=== PATIENT | male | born 1975 | race Caucasian/White ===

== ENCOUNTER → 2020-06-09 08:44 | Outpatient (CLI) | payer MEDICAID, SELFPAY ==
--- NOTE | 2020-06-09 08:47 | FL_ITS ---
PROCEDURE: FL UPPER GI SMALL BOWEL CLINICAL INDICATION: GASTROESOPHAGEAL REFLUX DISEASE Abdominal pain, heartburn COMPARISON: No exams were available for comparison TECHNIQUE: FLUOROSCOPY TIME : 2 minutes and 3 seconds FINDINGS: Esophagus has an unremarkable appearance. No hiatal hernia parent. In the duodenal bulb there was a area of questionable edema with radiating folds and small central area collection of contrast suggesting an ulcer of the duodenal bulb. There is also some thickening of the mucosa of the descending duodenum. The small bowel has an unremarkable appearance. No obstructing lesions or mucosal abnormalities are evident. Spot views of the small bowel and terminal ileum are unremarkable. IMPRESSION: 1. Possible small duodenal bulb ulcer with duodenitis 2. Unremarkable small bowel series Dictated by: Sam Woods MD 06/09/2020 17:03 Sam Woods MD in [place] 06/09/2020 17:03
== END ==
PROVIDERS: PCP Family Medicine; Visit Provider Physician Assistant
DX: K21.9 Gastro-esophageal reflux disease without esophagitis (principal)
CPT/HCPCS: 74246; 74248

== ENCOUNTER → 2020-06-10 15:48 | Outpatient (CLI) | payer MEDICAID, SELFPAY ==
--- NOTE | 2020-06-10 15:52 | XR_ITS ---
PROCEDURE: XR CERVICAL SPINE 5V CLINICAL INDICATION: Neck pain COMPARISON: No exams were available for comparison FINDINGS: No fracture or dislocation. No lytic or blastic change. There is normal mineralization. Prior anterior cervical disc fusion at C5-C6. There is good alignment in the bone plate and screws appear intact. There is some mild foraminal narrowing on the right at C6-C7 and on the left at C6-C7. No cervical rib. No lytic or blastic change. There is reversal of the cervical lordosis which may be due to patient position or muscle spasm. There is some faint calcification in the nuchal ligament at the C5 level. Other findings:None. IMPRESSION: Postsurgical changes. Mild bilateral foraminal narrowing at C6-C7. Reversal of cervical lordosis Dictated by: Sam Woods MD 06/10/2020 16:47 Sam Woods MD in [place] 06/10/2020 16:47
== END ==
PROVIDERS: PCP Physician Assistant; Visit Provider Physician Assistant
DX: K26.9 Duodenal ulcer, unspecified as acute or chronic, without hemorrhage or perforation (principal)
CPT/HCPCS: 72050

== ENCOUNTER → 2020-06-28 16:10 | Outpatient (CLI) | payer MEDICAID, SELFPAY ==
[2020-06-28 17:40] LABS: Coronavirus 19 IgG Antibody Negative (Negative); Coronavirus 19 IgM Antibody Negative (Negative)
== END ==
PROVIDERS: Visit Provider Surgery
DX: Z01.818 Encounter for other preprocedural examination (principal); Z13.810 Encounter for screening for upper gastrointestinal disorder
CPT/HCPCS: 36415; 86328

== ENCOUNTER 2020-06-30 08:25 | Day surgery (SDC) | payer MEDICAID, SELFPAY ==
[2020-06-29 10:02] VITALS: BMI 23.6
[2020-06-30 08:51] VITALS: BP 133/76; PULSE 69; RESP 18; TEMP 36.1; O2SAT 100
--- NOTE | 2020-06-30 09:47 | HMH.ANESCL ---
[facility] Anesthesia Checklist - Patient Identification Patient Identification: Arm Band - Structural Data Admitted From: Home Planned Operative Procedure/s: egd Consent for Planned Operative Procedure(s) Verified: Yes Verified Documents: Surgical Consent, History and Physical - NPO Status Verified Time NPO: 00:00 - Additional verifications Anesthesia Reactions: No - Airway Assessment C-Spine Mobility Assessed: Yes (mp2) TMJ Mobility Assessed: Yes Dentition: Poor Dentition - Neurological Assessment Level of Consciousness: Awake, Alert - Anesthesia Plan Anesthesia Risk discussed: Yes Anesthesia Plan: Verified ASA Class: II Anesthesia Type: MAC [facility] History I have reviewed the patient's past medical history: Yes Medical History: Reports:: Anxiety, Depression Denies:: Cancer, Diabetes Mellitus Type 1, Diabetes Mellitus Type 2, Hypertension, Internal Pacemaker, MRSA, Seizures *Have you ever received a pneumonia vaccine?: No *Have you received a flu vaccine this season?: Yes (2019) Anesthesia experience/problems:: nac Laterality Cases: Bilateral: Other Other Surgeries: Yes: Other (acdf). No: Pacemaker Amputation: No Fractures: No - *Social History Last grade of school completed: GED Smoking Status: Current every day smoker Tobacco Type: cigarettes # Packs/Day (cigarettes): 1 Alcohol Intake: current Alcohol Intake Frequency:: a few times a month Substance Use Type: marijuana *Occupational Status:: employed Housing: house Household Members: spouse *Travel in the last 8 weeks: None - Psychiatric History Pschychiatric History:: Reports:: Anxiety, Depression Family Hx:: No significant family history
[2020-06-30 12:27] VITALS: O2SAT 97
--- NOTE | 2020-06-30 12:37 | HMH.SCOPE ---
- Procedure: Date: 06/30/20 Patient Date of :: 1975 Procedure Performed:: Esophagogastroduodenoscopy with biopsy Indications:: Reflux Nausea and vomiting Duodenal ulcer (per barium swallow) Performing Provider:: Tyshawn Gao MD Referring Provider:: . Sedation:: Monitored anesthesia care Procedure:: After informed consent was obtained the patient was taken to the endoscopy suite. Sedation ensued after the patient was transferred to the left lateral decubitus position. Pulse, blood pressure, and oxygen saturation were monitored throughout the procedure. The endoscope was advanced beyond the duodenal bulb. Retroflexion within the gastric lumen was accomplished. The gastroscope was carefully removed and the patient was transferred to recovery in stable condition. Please see findings and specimens below for detail. Findings:: Gastroesophageal junction at 40 cm Sliding hiatal hernia Mild to moderate gastritis globally Focal duodenitis (possible site of healed ulcer) Specimens:: Antral biopsy Recommendations:: Follow-up pathology Continue proton pump inhibition Complications:: No immediate Estimated blood obtained (mL): 1
[2020-06-30 12:40] VITALS: BP 112/72; PULSE 68; RESP 18; TEMP 36.7; O2SAT 99
[2020-06-30 12:50] VITALS: BP 110/91; PULSE 67; RESP 18; O2SAT 100
[2020-06-30 13:00] VITALS: BP 132/82; PULSE 61; RESP 18; O2SAT 100
[2020-06-30 13:10] VITALS: BP 119/82; PULSE 50; RESP 18; O2SAT 100
== END 2020-06-30 13:10 | disposition home or self-care (01) ==
LOC: OUTP 08:25
PROVIDERS: PCP Physician Assistant; Visit Provider Surgery
PROC: 0DJ08ZZ Inspection of Upper Intestinal Tract, Via Natural or Artificial Opening Endoscopic (ICD-10-PCS; CPT 43235; principal; 2020-06-30 09:30)
DX: K44.9 Diaphragmatic hernia without obstruction or gangrene; K29.60 Other gastritis without bleeding; K29.80 Duodenitis without bleeding; F41.9 Anxiety disorder, unspecified; F32.9 Major depressive disorder, single episode, unspecified; Z87.39 Personal history of other diseases of the musculoskeletal system and connective tissue; Z72.0 Tobacco use; F12.90 Cannabis use, unspecified, uncomplicated
CPT/HCPCS: 43239

== ENCOUNTER → 2020-07-11 07:45 | Outpatient (CLI) | payer MEDICAID, SELFPAY ==
--- NOTE | 2020-07-11 07:48 | MR_ITS ---
PROCEDURE: MR CERVICAL SPINE WO CON CLINICAL INDICATION: NECK PAIN MIGRAINE HEADACHE. INTERMITTENT BILATERAL ARM PAIN, NUMBNESS, AND TINGLING. [id number]. NO INJURY. X-RAY 06-10-20.PRIOR MRI 08-21-13 COMPARISON: MR HANDLING TECH/O MRI-C-SPINE W/O from 08/21/2013 TECHNIQUE: Standard multiplanar multiecho sequences are performed without contrast. 3-D MIP and myelographic images are also rendered and reviewed FINDINGS: There is normal alignment. The craniocervical junction has an unremarkable appearance. C2-C3: Mild prominence of the posterior longitudinal ligament C3-C4: Minimal prominence of the posterior longitudinal ligament with bulging disc with narrowing of the canal at 10 mm without cord impingement. C4-C5: Bulging disc with broad-based central and right paracentral disc protrusion with canal stenosis of 8 mm and minimal impingement upon the anterior right aspect of the cord with right lateral recess and foraminal narrowing. This appears slightly more prominent than when compared to the previous exam. C5-C6: Status post anterior cervical disc fusion. Artifact is present on the axial images. No obvious canal stenosis or foraminal narrowing. C6-C7: Minimal bulging disc with minimal central disc protrusion versus prominent posterior longitudinal ligament without cord impingement. C7-T1: Unremarkable. IMPRESSION: 1. C2-C3: Mild prominence of the posterior longitudinal ligament 2. C3-C4: Minimal prominence of the posterior longitudinal ligament with bulging disc with narrowing of the canal at 10 mm without cord impingement. 3. C4-C5: Bulging disc with broad-based central and right paracentral disc protrusion with canal stenosis of 8 mm and minimal impingement upon the anterior right aspect of the cord with right lateral recess and foraminal narrowing. This appears slightly more prominent than when compared to the previous exam. 4. C5-C6: Status post anterior cervical disc fusion. Artifact is present on the axial images. No obvious canal stenosis or foraminal narrowing. 5. C6-C7: Minimal bulging disc with minimal central disc protrusion versus prominent posterior longitudinal ligament without cord impingement. 6. No extruded herniated disc evident Dictated by: Sam Woods MD 07/12/2020 11:13 Sam Woods MD in [place] 07/12/2020 11:13
== END ==
PROVIDERS: PCP Physician Assistant; Visit Provider Physician Assistant
DX: M54.2 Cervicalgia (principal); Z87.39 Personal history of other diseases of the musculoskeletal system and connective tissue
CPT/HCPCS: 72141; 76376

== ENCOUNTER 2021-11-08 16:27 | Emergency (ER) | payer BC, SELFPAY ==
[2021-11-08 18:34] VITALS: BP 128/82; PULSE 90; RESP 18; TEMP 37.5; O2SAT 99; BMI 22.8
[2021-11-08 18:50] LABS: UTC Influenza A Antigen Negative (Negative); UTC Influenza B Antigen Negative (Negative)
[2021-11-08 18:59] LABS: Strep Scrn Group A (Rapid) Negative (Negative)
--- NOTE | 2021-11-08 19:28 | HMH.EDUTC ---
[facility] [place] Disposition Clinical Impression: Viral syndrome, Exposure to COVID-19 virus Disposition: Home, Self-Care Condition on Discharge: Good Instructions: Preventing the Spread of Coronavirus Discharge Instructions, DI for COVID-19 (Suspected or Confirmed ), DI for Viral Syndrome Additional Instructions: Drink plenty of fluids. Take tylenol or ibuprofen for pain or fever. Take the medications as directed. Follow up with your regular doctor. GO TO THE ER FOR ANY WORSENING SYMPTOMS Quarantine until you know the results of your covid-19 test. Notify your school or workplace of your results and follow their instructions regarding return to work/school. The cough medication (promethazine dm) will make you drowsy, so don't drive or operate heavy machinery after taking it. Prescriptions: Albuterol Sulfate [Albuterol Sulfate Hfa] 2 puffs IH Q6HP PRN 30 Days #1 each PRN Reason: Shortness Of Breath [facility] Ibuprofen [Ibuprofen 600mg Tablet] 600 mg PO Q6HP PRN #30 tab PRN Reason: Mild Pain Transmission Status: Pending to [facility] Promethazine/Dextromethorphan [Promethazine-Dm Syrup] 5 ml PO Q6HP PRN #240 ml PRN Reason: Cough Transmission Status: P[facility] to [facility] Referrals: Bhargav Soni MD [Primary Care Provider] - Forms: Work/School Release Time of Disposition: 19:32 Medical Decision Making - Medical Records Medical records reviewed: No: I reviewed the patient's medical records. - Angelito Inquiry Pt receiving controlled substance: No Vital Signs: 11/08/21 18:34 Temperature 99.5 F Temperature Source Temporal Artery Scan Pulse Rate [Left] 90 Respiratory Rate 18 Blood Pressure [Right Arm] 128/82 Blood Pressure Mean [Right Arm] 97 02 Sat by Pulse Oximetry 99 - Lab Data Lab Results 11/08/21 18:29: Group A Strep Rapid Negative 11/08/21 18:34: Influenza Type A Ag Negative, Influenza Type B Ag Negative Orders (Tests/Meds): ORDERS Category Date Time Status Covid-19 Nasal PCR ([facility]) Routine Lab 11/08/21 18:29 Received Strep Screen Confirmation Stat Micro 11/08/21 18:29 Received [facility] [place] HPI - General Stated complaint: EXPOSED,FEVER,CHILLS,lopez,bODY PAIN lopez Time Seen by Provider: 11/08/21 19:28 Mode of Arrival: Ambulatory Source of Information: Patient Limitations: No Limitations Description of Symptoms (Recalled from Triage Doc. by RN): pt c/o a fever, nausea, body aches, chills and sweating. HEENT Symptoms (Recalled from RN notes): No Resp Symptoms (Recalled from RN notes): No Skin Symptoms (Recalled from RN notes): No MS Symptoms (Recalled from RN notes): No Functional Status (Recalled from RN notes): wnl - History of Present Illness Provider Complaint: He states that for the past 1 day he has had chilling, body aches, a dry cough, scratchy sore throat, and he has felt very bad. He has not been vaccinated against covid-19. He has not had an influenza vaccination. - Related Data Home Medications Medication Instructions Recorded Confirmed gabapentin 300 mg capsule 300 mg PO DAILY 06/22/20 07/06/20 Previous Rx's Medication Instructions Recorded Albuterol Sulfate [Albuterol 2 puffs IH Q6HP PRN 30 Days #1 each 11/08/21 Sulfate Hfa] Ibuprofen [Ibuprofen 600mg 600 mg PO Q6HP PRN #30 tab 11/08/21 Tablet] Promethazine/Dextromethorphan 5 ml PO Q6HP PRN #240 ml 11/08/21 [Promethazine-Dm Syrup] Allergies Allergy/AdvReac Type Severity Reaction Status Date / Time No Known Allergies Allergy Verified 06/30/20 08:50 - Worker's Comp Is this a Worker's Comp case?: No [facility] History - Hepatitis A Screen Drug use history?: No High risk sexual behaviors?: No History of sexually transmitted infection?: No Currently employed?: No Childcare worker?: No Do you have indoor plumbing?: Yes Do you have electricity?: Yes Attestation statement:: This patient has been sc
[2021-11-08 19:36] VITALS: BP 128/82; PULSE 90; RESP 18; TEMP 37.5
== END 2021-11-08 19:37 | disposition home or self-care (01) ==
PROVIDERS: Emergency Provider Nurse Practitioner Family; PCP Family Medicine
DX: U07.1 COVID-19 (principal); F17.210 Nicotine dependence, cigarettes, uncomplicated
CPT/HCPCS: 87430; 87804; 99203; C9803; G0463; U0003; U0005

== ENCOUNTER 2022-08-09 19:26 | Emergency (ER) | payer BC, SELFPAY ==
--- NOTE | 2022-08-09 19:20 | ECG_ITS ---
APPROVED REPORT Exam: Resting ECG HR:79 bpm ECG Measurements Heart Rate 79 AXES RI 167 P 56 QRSd 90 QRS 74 QT 343 T 29 QTc 377 Conclusion SINUS RHYTHM NONSPECIFIC T-WAVE ABNORMALITY BORDERLINE ECG UNCONFIRMED REPORT Electronically signed by : Herb Disla MD 08/10/2022 12:34:08
[2022-08-09 19:26] VITALS: BP 162/103; PULSE 78; RESP 16; TEMP 36.7; O2SAT 100; BMI 21.5
[2022-08-09 19:34] VITALS: BMI 22.9
--- NOTE | 2022-08-09 19:35 | XR_ITS ---
PROCEDURE INFORMATION: Exam: XR Chest Exam date and time: 08/09/2022 7:37 PM Age: 47 years old Clinical indication: Sternal or substernal pain; Additional info: Chest pain, halfway smoker TECHNIQUE: Imaging protocol: Radiologic exam of the chest. Views: 2 views. COMPARISON: No relevant prior studies available. FINDINGS: Lungs: Normal pulmonary expansion. Pulmonary vasculature grossly normal. No gross pulmonary infiltrates or edema pattern. Pleural spaces: No pleural effusion. No pneumothorax. Heart/Mediastinum: Heart size normal. No tracheal/mediastinal shift. Bones/joints: Cervical fusion hardware noted without gross hardware complication. No acute osseous abnormalities are identified. IMPRESSION: No acute thoracic process.
[2022-08-09 20:18] LABS: Basophils # 0.1 K/mm3 (0-0.2); Basophils % 0.9 % (0.1-2.0); Eosinophils # 0.1 K/mm3 (0.0-0.4); Eosinophils % 0.5 % (0.1-12.0); Hematocrit 52.8 % (42.0-52.0); Hemoglobin 17.1 g/dL (14.1-18.0); Lymphocytes # 2.4 K/mm3 (0.7-4.5); Mean Corpuscular HGB Conc 32.3 g/dL (31.8-35.4); Mean Corpuscular Hemoglobin 31.4 pg (27.0-31.2); Mean Corpuscular Volume 97.1 fl (80-94); Mean Platelet Volume 8.7 fl (7.4-10.4); Monocytes # 0.9 K/mm3 (0.1-1.0); Monocytes % 7.4 % (1.7-9.3); Neutrophils # 8.5 K/mm3 (1.8-7.8); Neutrophils % 71.3 % (37.0-80.0); Platelet Count 325 K/mm3 (142-424); Red Blood Count 5.44 M/mm3 (4.60-6.20); Red Cell Distribution Width 13.3 % (11.5-17.5)
[2022-08-09 20:42] LABS: Chloride 99 mmol/L (98-107); Potassium 4.1 mmoL/L (3.5-5.1); Sodium 138 mmol/L (136-145)
[2022-08-09 20:45] LABS: Anion Gap 13.1 mEq/L (5-15); Blood Urea Nitrogen 11 mg/dl (9-20); Carbon Dioxide 30 mmol/L (22.0-30.0); Creatinine Clearance Estimated 106 mL/min (50-200); Estimated Glomerular Filt Rate 91 ml/min (>60); GFR (African American) 110 ML/MIN (>60); Glucose 105 mg/dl (74-100)
--- NOTE | 2022-08-09 20:55 | HMH.EDCP ---
Discharge Plan Disposition Patient Disposition: Home, Self-Care Condition: Good Prescriptions Prescriptions: No Action gabapentin 300 mg capsule 300 mg PO DAILY promethazine-DM 120 ML syrup 5 ml PO Q6HP PRN (Reason: Cough) Qty: 240 0RF albuterol sulfate 8.5 GM HFA aerosol inhaler 2 puffs IH Q6HP PRN (Reason: Shortness Of Breath) 30 Days Qty: 1 5RF ibuprofen 600 MG tablet 600 mg PO Q6HP PRN (Reason: Mild Pain) Qty: 30 0RF Referrals Follow up/Referrals: Bhargav Soni MD [Primary Care Provider] - See instructions Fabiano Rivas MD [Staff Physician] - See instructions (F/U for ER chest pain visit) Activity Restrictions/Add. Instructions Additional Instructions/Restrictions: Follow-up with cardiology and your primary care. Return to the ER for any new or worsening symptoms including return of chest pain. Clinical Impressions Clinical Impression: Chest pain Instructions Patient Instructions: DI for Atypical Chest Pain, DI for Chest Pain Discharge ED Provider: Newton Giang Chest Pain HPI General Chief Complaint: Chest Pain Stated Complaint: chest pain Time Seen by Provider: 08/09/22 20:00 Mode of Arrival: Ambulatory Limitations: No Limitations Description of Symptoms (Recalled from ER Triage Doc. by RN): pt stated he was at work when he started having an intense sharp pain in the lower part of his chest the pain is now a 2/10 and the pt stated he has a hx of anxiety but has never had this befor this felt different History of Present Illness HPI narrative: 47-year-old male presents with sharp stabbing pain in the lower left part of his chest currently now pain-free was 2 out of 10 in triage. 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 This started approximately 1 hour ago. Brought in by EMS. Patient states that he has had chest pain with severe anxiety attacks before but this felt different than his panic attacks. He denies shortness of breath or radiation of pain associated nausea. He did have some of his constitutional symptoms such as arm tingling that he has had with panic attacks in the past. He felt slightly dizzy with standing denies palpitations. No history of embolism. RENÉ Score for Non-Stemi Age of Patient: 40-49 years old Heart Rate: 110-149 bpm Systolic Blood Pressure: 80-99 mmHg Serum Creatinine: 0.80-1.19 mg/dl CHF [place] Class: I-No CHF Other Risk Factors: None Non-Stemi Risk Score: 109 Risk Stratification: 109-140 = Intermediate Ri Related Data Home Medications Medication Instructions Recorded Confirmed gabapentin 300 mg capsule 300 mg PO DAILY Pain 06/22/20 07/06/20 Previous Rx's Medication Instructions Recorded albuterol sulfate 90 mcg/actuation 2 puffs IH Q6HP PRN Shortness Of 11/08/21 aerosol inhaler Breath 30 days #1 ea ibuprofen 600 mg tablet 600 mg PO Q6HP PRN Mild Pain #30 11/08/21 tabs promethazine-DM 6.25 mg-15 mg/5 mL 5 ml PO Q6HP PRN Cough #240 mL 11/08/21 oral syrup Allergies Allergy/AdvReac Type Severity Reaction Status Date / Time No Known Allergies Allergy Verified 06/30/20 08:50 PFSH PFSH Social History Smoking Status: Current every day smoker tobacco type: cigarettes packs per day: 1 alcohol intake: current substance use type: marijuana current occupational status: employed Travel in the last 8 weeks: None household members: spouse housing: house current occupation: [employer] current occupational exposures/hazards: No caffeine: Yes ROS Obtained: Yes Systems reviewed as appropriate & no additional complaints except as documented Physical Exam General General appearance: alert and in no apparent distress Head Head exam: atraumatic and normocephalic Eye Eye exam: Present normal appearance and PERRL ENT ENT exam: Present mucous membranes moist
[2022-08-09 21:06] LABS: Troponin I < 0.01 ng/ml (0.00-0.034)
[2022-08-09 21:30] VITALS: BP 120/78; PULSE 50; O2SAT 96
[2022-08-09 22:00] VITALS: BP 118/74; PULSE 48; O2SAT 97
[2022-08-09 22:30] VITALS: BP 121/84; PULSE 75; O2SAT 98
[2022-08-09 23:30] LABS: Troponin I < 0.01 ng/ml (0.00-0.034)
[2022-08-09 23:59] VITALS: BP 120/83; PULSE 54; RESP 14; TEMP 36.6; O2SAT 99
== END 2022-08-10 00:15 | disposition home or self-care (01) ==
PROVIDERS: Emergency Medicine; Emergency Provider Student in an Organized Health Care Education/Training Program; PCP Family Medicine
DX: R07.9 Chest pain, unspecified (principal)
CPT/HCPCS: 71046; 80048; 84484; 85025; 93005; 99284

== ENCOUNTER 2023-11-29 13:47 | Emergency (ER) | payer BC, SELFPAY ==
[2023-11-29 13:49] VITALS: BP 131/91; PULSE 62; RESP 22; TEMP 37.1; O2SAT 99; BMI 21.4
[2023-11-29 14:31] VITALS: BP 145/91; PULSE 66; RESP 20; O2SAT 99
[2023-11-29 15:00] VITALS: BP 150/63; PULSE 65; O2SAT 97
--- NOTE | 2023-11-29 15:03 | PC.NURSE ---
Dr. Iqbal at [facility] for pt eval
--- NOTE | 2023-11-29 15:13 | CT_ITS ---
FINAL REPORT TECHNIQUE: Axial imaging of the chest was obtained without contrast. Reformatted images were also obtained and reviewed.This study was performed with techniques to keep radiation doses as low as reasonably achievable, (ALARA). Individualized dose reduction technique using automated exposure control or adjustment of mA and/or kV according to the patient's size were employed. CLINICAL HISTORY: fall, R rib pain, pleurisy FINDINGS: There are mild coronary artery calcifications. There is no axillary adenopathy. There is no hilar or mediastinal mass or adenopathy. Heart size is normal. There is no pericardial or pleural effusion. Limited images of the upper abdomen are unremarkable. There is a calcified granuloma in the right upper lobe. No fracture is identified. There is no pneumothorax. No suspicious infiltrate or nodule is identified on lung window images. IMPRESSION: No acute process. Reviewed, Interpreted and Dictated by Lorenzo Agustin III, MD Transcribed by Deidre Burgos Authenticated and [facility]
[2023-11-29] MEDS: LIDOCAINE 5% TRANSDERMAL PATCH 1 EACH TP (15:21)
[2023-11-29] MEDS: ACETAMINOPHEN 500MG TAB 1000 MG PO (15:21)
[2023-11-29] MEDS: METHOCARBAMOL 500MG TABLET 750 MG PO (15:21)
[2023-11-29] MEDS: IBUPROFEN 600 MG TABLET PO (15:21)
--- NOTE | 2023-11-29 15:29 | PC.NURSE ---
Pt gone to RAD via wheelchair
--- NOTE | 2023-11-29 15:50 | ED_ITS ---
Discharge Plan Disposition Patient Disposition: Home, Self-Care Prescriptions Prescriptions: New methocarbamol 750 mg tablet 1,500 mg PO TID 5 Days Qty: 30 0RF No Action gabapentin 300 mg capsule 300 mg PO DAILY promethazine-DM 120 ML syrup 5 ml PO Q6HP PRN (Reason: Cough) Qty: 240 0RF albuterol sulfate 8.5 GM HFA aerosol inhaler 2 puffs IH Q6HP PRN (Reason: Shortness Of Breath) 30 Days Qty: 1 5RF ibuprofen 600 MG tablet 600 mg PO Q6HP PRN (Reason: Mild Pain) Qty: 30 0RF Referrals Follow up/Referrals: Bhargav Soni MD [Primary Care Provider] - See instructions Activity Restrictions/Add. Instructions Additional Instructions/Restrictions: Call your family doctor to establish care for this visit to the emergency department and schedule follow-up within 48 hours to ensure improvement. If you have any worsening of your condition or any other concerning signs or symptoms, return to the emergency department or your primary care doctor for further evaluation. Clinical Impressions Clinical Impression: Rib pain on right side, Fall Discharge ED Provider: Angel Iqbal General Adult HPI General Chief complaint: Fall Stated complaint: Pain in right ribs Time Seen by Provider: 11/29/23 14:58 Mode of Arrival: Ambulatory Source of Information: Patient Limitations: No Limitations Description of Symptoms (Recalled from ER Triage Doc. by RN): patient ambulatory to ED with c/o right side rib pain. patient with ground level fall to right side. 10/10 pain with inspiration and cough. 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 History of Present Illness HPI narrative: 48-year-old male history of anxiety not currently taking any medications presenting with right rib pain. Patient states that 2 days prior to this visit, he tripped, hit the right side of his ribs on the sink. His head pain since that time. No difficulty breathing, nausea, vomiting, hemoptysis, fevers or chills. He states that he has been coughing and has been nonproductive precipitating pain. It is right-sided/posterior, severe in intensity, does not radiate. Related Data Home Medications Medication Instructions Recorded Confirmed gabapentin 300 mg capsule 300 mg PO DAILY Pain 06/22/20 07/06/20 Previous Rx's Medication Instructions Recorded albuterol sulfate 90 mcg/actuation 2 puffs IH Q6HP PRN Shortness Of 11/08/21 aerosol inhaler Breath 30 days #1 ea ibuprofen 600 mg tablet 600 mg PO Q6HP PRN Mild Pain #30 11/08/21 tabs promethazine-DM 6.25 mg-15 mg/5 mL 5 ml PO Q6HP PRN Cough #240 mL 11/08/21 oral syrup methocarbamol 750 mg tablet 1,500 mg PO TID 5 days #30 tabs 11/29/23 Allergies Allergy/AdvReac Type Severity Reaction Status Date / Time No Known Allergies Allergy Verified 06/30/20 08:50 [facility] Disclaimer: The information contained in this section may have been updated after the patient was seen, as this information can be updated by other users. Social History Smoking Status: Current every day smoker tobacco type: cigarettes packs per day: 1 alcohol intake: current substance use type: marijuana current occupational status: employed Travel in the last 8 weeks: None household members: spouse housing: house current occupation: [employer] current occupational exposures/hazards: No caffeine: Yes ROS Obtained: Yes All systems reviewed & no additional complaints except as documented Physical Exam General General appearance: alert and in no apparent distress Head Head exam: atraumatic and normocephalic Eye Eye exam: Present normal appearance, PERRL and EOMI ENT ENT exam: Present mucous membranes moist Neck Neck exam: Present normal inspection, full ROM, trachea midline and tenderness (R posterolateral) Respiratory Respiratory exam: Absent respiratory distress, wheezes, stridor, accessory muscle use or prolonged expiratory phase Cardiovascular Cardiovascular exam: Present normal rhythm Abdominal Exam Abdominal exam: Present soft; Absent distention, tenderness, guarding, rebound or rigidity Extremities Exam Extremities exam: Absent edema Neurological Exam Neurological exam: Present alert, oriented X3, CN II-XII intact and normal gait; Absent motor sensory deficit Skin Skin exam: Present warm and dry; Absent diaphoresis or erythema Medical Decision Making Medical Records Medical records reviewed: Yes I reviewed the patient's medical records. Angelito Inquiry Pt receiving controlled substance: No Angelito was queried for this patient: No Vital Signs: 11/29/23 13:49 11/29/23 14:31 11/29/23 15:00 Temperature 98.8 F Temperature Source Oral Pulse Rate 66 65 Pulse Rate [Right] 62 Respiratory Rate 22 20 Blood Pressure 145/91 H 150/63 H Blood Pressure [Right Arm] 131/91 H Blood Pressure Mean [Right Arm] 104 Blood Pressure Source Automatic Cuff Blood Pressure Position Sitting 02 Sat by Pulse Oximetry 99 99 97 Oxygen Delivery Method Room Air Room Air Room Air Orders (Tests/Meds): ED MEDICATIONS Discontinued Medications Generic Name Dose Route Start Last Admin Trade Name Rox PRN Reason Stop Dose Admin Acetaminophen 1,000 mg 11/29/23 15:13 11/29/23 15:21 Acetaminophen 500mg Tab PO 11/29/23 15:14 1,000 mg ONCE ONE Administration Ibuprofen 600 mg 11/29/23 15:13 11/29/23 15:21 Ibuprofen 600 Mg Tablet PO 11/29/23 15:14 600 mg ONCE ONE Administration Lidocaine 1 each 11/29/23 15:13 11/29/23 15:21 Lidocaine 5% Transdermal Patch TP 11/29/23 15:14 1 each ONCE ONE Administration Methocarbamol 750 mg 11/29/23 15:13 11/29/23 15:21 Methocarbamol 500mg Tablet PO 11/29/23 15:14 750 mg ONCE ONE Administration ORDERS Category Date Time Status CT chest wo con Stat Cat Scan 11/29/23 15:13 Completed Medical Decision Narrative: 48-year-old male history of anxiety not currently taking any medications presenting with right rib pain. Patient states that 2 days prior to this visit, he tripped, hit the right side of his ribs on the sink. His head pain since that time. No difficulty breathing, nausea, vomiting, hemoptysis, fevers or chills. He states that he has been coughing and has been nonproductive precipitating pain. It is right-sided/posterior, severe in intensity, does not radiate. History was obtained via conversation with patient and family. On arrival, patient hemodynamically stable, alert, oriented x4, appropriate, GCS 15, moving all extremities spontaneously, pupils equal and reactive to light. Full physical exam performed and significant for well-appearing male who is in no acute distress. Saturating 100% on room air, nontachycardic, normotensive. Lungs are clear to auscultation bilaterally without focal breath sounds. Patient does have normal cardiac exam as well. He has focal tenderness to right posterior lateral chest without outward signs of injury, deformity. Differential includes rib fracture, pulmonary contusion, pneumothorax, MSK bruising, among others. Patient was given lidocaine patch, Tylenol, Motrin, Robaxin for symptomatic management and correction of underlying abnormalities. Workup independently interpreted and significant for no acute fracture or bony abnormality of the ribs on CT without contrast. No evidence of pulmonary contusion or pneumothorax. See radiology read for full review of final results. On reevaluation, patient resting comfortably bed with pain, but mildly controlled. Given patient presentation, workup, history, this most likely represents bruised ribs in the setting of fall. Because patient at baseline without signs or symptoms of clinical decompensation, deemed appropriate for discharge. Results were relayed to patient who voiced understanding and were agreeable to outpatient management and follow up. At the time of discharge the patient was hemodynamically stable, tolerating PO, and mobilizing appropriately. Critical Care Critical Care Time Critical Care Time: No
[2023-11-29 16:34] VITALS: BP 170/107; PULSE 62; RESP 18; TEMP 36.8; O2SAT 100
== END 2023-11-29 16:36 | disposition home or self-care (01) ==
PROVIDERS: Emergency Provider Emergency Medicine; PCP Family Medicine
DX: R07.81 Pleurodynia (principal); R51.9 Headache, unspecified; R05.9 Cough, unspecified; F17.210 Nicotine dependence, cigarettes, uncomplicated; W01.198A Fall on same level from slipping, tripping and stumbling with subsequent striking against other object, initial encounter
CPT/HCPCS: 71250; 99284

== ENCOUNTER 2024-11-03 17:01 | Emergency (ER) | payer BC, SELFPAY ==
[2024-11-03 17:01] VITALS: BP 125/81; PULSE 82; RESP 16; TEMP 37.1; O2SAT 98; BMI 21.4
--- NOTE | 2024-11-03 17:01 | ECG_ITS ---
APPROVED REPORT Exam: Resting ECG HR:85 bpm ECG Measurements Heart Rate 85 AXES KS 163 P 40 QRSd 93 QRS 75 QT 341 T 46 QTc 383 Conclusion SINUS RHYTHM NONSPECIFIC T-WAVE ABNORMALITY No STEMI Electronically signed by : MERYL SALAZAR, 11/04/2024 03:12:37
--- NOTE | 2024-11-03 17:03 | PC.NURSE ---
Dr. Vasquez at [facility] for pt eval
--- NOTE | 2024-11-03 17:05 | PC.NURSE ---
stroke alert called
--- NOTE | 2024-11-03 17:08 | CT_ITS ---
PROCEDURE INFORMATION: Exam: CTA Head With Contrast, Arteriography Exam date and time: 11/03/2024 5:11 PM Age: 49 years old Clinical indication: Stroke-like symptoms; Altered mental status/memory loss; Additional info: L sided facial numbness, headache TECHNIQUE: Imaging protocol: Computed tomographic angiography of the head with contrast. Exam focused on the arteries. 3D rendering (Not supervised by radiologist): MIP and/or 3D reconstructed images were created by the technologist. Radiation optimization: All CT scans at this facility use at least one of these dose optimization techniques: automated exposure control; mA and/or kV adjustment per patient size (includes targeted exams where dose is matched to clinical indication); or iterative reconstruction. Contrast material: ISO 370; Contrast volume: 80 ml; Contrast route: INTRAVENOUS (IV); COMPARISON: CT HEAD/BRAIN WO CON 11/03/2024 5:11 PM FINDINGS: ANTERIOR CIRCULATION: Right internal carotid artery: Intracranial segment is patent with no significant stenosis. No aneurysm. Right middle cerebral artery: No occlusion or significant stenosis. No aneurysm. Right anterior cerebral artery: No occlusion or significant stenosis. No aneurysm. Left internal carotid artery: Intracranial segment is patent with no significant stenosis. No aneurysm. Left middle cerebral artery: No occlusion or significant stenosis. No aneurysm. Left anterior cerebral artery: No occlusion or significant stenosis. No aneurysm. POSTERIOR CIRCULATION: Right vertebral artery: No occlusion or significant stenosis. No aneurysm. Left vertebral artery: No occlusion or significant stenosis. No aneurysm. Basilar artery: No occlusion or significant stenosis. No aneurysm. Right posterior cerebral artery: No occlusion or significant stenosis. No aneurysm. Left posterior cerebral artery: No occlusion or significant stenosis. No aneurysm. Brain: No definite mass, mass effect, or midline shift. Cerebral ventricles: No ventriculomegaly. Bones/joints: Unremarkable. No acute fracture. Soft tissues: Unremarkable. IMPRESSION: No acute large vessel stenosis or occlusion.
--- NOTE | 2024-11-03 17:08 | XR_ITS ---
FINAL REPORT CLINICAL HISTORY: stroke sx COMPARISON: 08/09/2022 FINDINGS: No acute pulmonary opacity is present. There is no evidence of effusion or pneumothorax. Mediastinum is unremarkable. Heart size is normal. IMPRESSION: No acute abnormality. Reviewed, Interpreted and Dictated by Griselda Jensen MD Transcribed by Saar Corral Authenticated and [facility]
--- NOTE | 2024-11-03 17:08 | CT_ITS ---
PROCEDURE INFORMATION: Exam: CTA Neck With Contrast Exam date and time: 11/03/2024 5:11 PM Age: 49 years old Clinical indication: Stroke-like symptoms; Altered mental status/memory loss; Additional info: L sided facial numbness, headache TECHNIQUE: Imaging protocol: Computed tomographic angiography of the neck with contrast. Exam focused on the cervical segments of the vasculature. 3D rendering (Not supervised by radiologist): MIP and/or 3D reconstructed images were created by the technologist. Radiation optimization: All CT scans at this facility use at least one of these dose optimization techniques: automated exposure control; mA and/or kV adjustment per patient size (includes targeted exams where dose is matched to clinical indication); or iterative reconstruction. Contrast material: ISO 370; Contrast volume: 80 ml; Contrast route: INTRAVENOUS (IV); COMPARISON: CT ANGIO HEAD 11/03/2024 5:11 PM FINDINGS: Right common carotid artery: No stenosis. No dissection or occlusion. Right internal carotid artery: No stenosis of the extracranial segment. No dissection or occlusion. Right external carotid artery: No occlusion or stenosis of the origin. Left common carotid artery: No stenosis. No dissection or occlusion. Left internal carotid artery: No stenosis of the extracranial segment. No dissection or occlusion. Left external carotid artery: No occlusion or stenosis of the origin. Right vertebral artery: No stenosis. No dissection or occlusion. Left vertebral artery: No stenosis. No dissection or occlusion. Soft tissues: Normal. No significant soft tissue swelling. Bones/joints: No acute fracture. IMPRESSION: No stenosis or occlusion. REFERENCES: NASCET CRITERIA. The degree of stenosis in the cervical segment of the internal carotid artery is based on NASCET criteria. Normal is no stenosis. Mild is less than 50% stenosis. Moderate is 50-69% stenosis. Severe is 70% to 99% stenosis. Total occlusion is no detectable patent lumen.
--- NOTE | 2024-11-03 17:08 | CT_ITS ---
PROCEDURE INFORMATION: Exam: CT Head Without Contrast Exam date and time: 11/03/2024 5:11 PM Age: 49 years old Clinical indication: Stroke-like symptoms; Altered mental status/memory loss; Additional info: L sided facial numbness, headache TECHNIQUE: Imaging protocol: Computed tomography of the head without contrast. Radiation optimization: All CT scans at this facility use at least one of these dose optimization techniques: automated exposure control; mA and/or kV adjustment per patient size (includes targeted exams where dose is matched to clinical indication); or iterative reconstruction. Other technique: STROKE PROTOCOL was implemented. COMPARISON: CT ANGIO HEAD 11/03/2024 5:11 PM FINDINGS: Brain: Normal. No hemorrhage. Unremarkable white matter. No mass effect. Cerebral ventricles: No ventriculomegaly. Paranasal sinuses: Visualized sinuses are unremarkable. No fluid levels. Mastoid air cells: Visualized mastoid air cells are well aerated. Bones: Unremarkable. No acute fracture. Soft tissues: Unremarkable. IMPRESSION: No acute intracranial abnormality. ASSESSMENT: ASPECTS (Jennifer Stroke Program Early CT Score) is 10.
[2024-11-03] MEDS: 0.9 % SODIUM CHLORIDE 50 ML VIAL IV (17:15)
[2024-11-03] MEDS: SODIUM CHLORIDE 0.9% 10ML SYR (RAD ONLY) 10 ML IV (17:15)
[2024-11-03] MEDS: IOPAMIDOL-370 (76%);100ML BOTTLE 80 ML IV (17:15)
[2024-11-03 17:19] LABS: Chloride 103 mmol/L (98-107); Potassium 4.3 mmoL/L (3.5-5.1); Sodium 134 mmol/L (136-145)
[2024-11-03 17:21] LABS: Blood Urea Nitrogen 18 mg/dl (9-20); Estimated Glomerular Filt Rate 90 ml/min (>60); GFR (African American) 109 ML/MIN (>60)
[2024-11-03 17:22] LABS: Alanine Aminotransferase 31 U/L (12-78); Alkaline Phosphatase 77 U/L (38-126); Aspartate Amino Transferase 33 U/L (17-59); Bilirubin,Total 0.3 mg/dl (0.2-1.3); Calcium 9.2 mg/dl (8.4-10.2); Glucose 101 mg/dl (74-100); Total Protein,Serum 6.9 g/dl (6.3-8.2)
[2024-11-03 17:24] LABS: Activated Partial Thrombo Time 29.3 seconds (22.8-30.6); Prothrombin Time 10.2 seconds (10.1-12.5)
--- NOTE | 2024-11-03 17:24 | HMH.EDGENADL ---
Discharge Plan Disposition Patient Disposition: Home, Self-Care Condition: Good Prescriptions Prescriptions: New aspirin 81 mg tablet,delayed release (DR/EC) 81 mg PO DAILY Qty: 30 1RF No Action gabapentin 300 mg capsule 300 mg PO DAILY promethazine-DM 120 ML syrup 5 ml PO Q6HP PRN (Reason: Cough) Qty: 240 0RF albuterol sulfate 8.5 GM HFA aerosol inhaler 2 puffs IH Q6HP PRN (Reason: Shortness Of Breath) 30 Days Qty: 1 5RF ibuprofen 600 MG tablet 600 mg PO Q6HP PRN (Reason: Mild Pain) Qty: 30 0RF methocarbamol 750 mg tablet 1,500 mg PO TID 5 Days Qty: 30 0RF Referrals Follow up/Referrals: Provider,Referral, MD [Primary Care Provider] - See instructions Activity Restrictions/Add. Instructions Additional Instructions/Restrictions: You were evaluated in the emergency department today. At this time, it is possible your symptoms are related to TIA or mini stroke, or it could be a complex form of migraine. I recommend very close follow-up with primary care as well as with neurology. Your primary care provider can help arrange this. Continue taking your cholesterol medication at home. I am also prescribing you aspirin to take daily. Please let your primary care provider know that you are on this and make sure they do not want to make any changes. Return to the emergency department right away for new or worsening symptoms. Clinical Impressions Clinical Impression: Transient neurological symptoms, Headache Stand Alone Forms Stand Alone Forms: Work/School Release Instructions Patient Instructions: DI for Transient Ischemic Attack, DI for Headache Print Language Print Language: Bulgarian Discharge ED Provider: Faith Vasquez General Adult HPI General Chief complaint: Neuro Symptoms/Deficit Stated complaint: STOKE SYSTEM Time Seen by Provider: 11/03/24 17:04 Mode of Arrival: Ambulatory Source of Information: Patient Limitations: No Limitations Description of Symptoms (Recalled from ER Triage Doc. by RN): pt to the ED from work for sudden onset of left sided facial numbness and feels like his mouth is drawling up. pt also reports a posterior headache. unable to accurately access for facial droop due to limited visability from pts large pan. History of Present Illness HPI narrative: This patient is a 49-year-old male with a history of hypertension, anxiety presenting to the emergency department for evaluation with concern for left-sided facial numbness that started around 4:30 PM. He states that he had a transient visual disturbance that seem like his vision just went out to the side for a second around 2:00 PM, but he has not had any visual disturbance since then. He does note that he has a headache in the back of his head currently. He has numbness of the left side of his face and inside of his mouth, but his upper face feels normal. He also feels like the left lower side of his face is drawing but has no facial asymmetry. No other symptoms currently such as visual disturbance, other numbness or tingling, extremity weakness, discoordination, balance issues, vertigo or other concern. Related Data Home Medications ?Medication ?Instructions ?Recorded ?Confirmed gabapentin 300 mg capsule 300 mg PO DAILY Pain 06/22/20 07/06/20 Previous Rx's ?Medication ?Instructions ?Recorded albuterol sulfate 90 mcg/actuation 2 puffs IH Q6HP PRN Shortness Of 11/08/21 aerosol inhaler Breath 30 days #1 ea ibuprofen 600 mg tablet 600 mg PO Q6HP PRN Mild Pain #30 11/08/21 tabs promethazine-DM 6.25 mg-15 mg/5 mL 5 ml PO Q6HP PRN Cough #240 mL 11/08/21 oral syrup methocarbamol 750 mg tablet 1,500 mg (2 x 750 mg) PO TID 5 11/29/23 days #30 tabs aspirin 81 mg tablet,delayed 81 mg PO DAILY #30 tabs 11/03/24 release Allergies Allergy/AdvReac Type Severity Reaction Status Date / Time No Known Allergies Allergy Verified 06/30/20 08:50 [facility] Disclaimer: The information contained in this section may have been updated after the patient was seen, as this information can be updated by other users. Social History Smoking Status: Current every day smoker tobacco type: cigarettes packs per day: 1 alcohol intake: current alcohol intake frequency: a few times a month substance use type: marijuana current occupational status: employed Travel in the last 8 weeks: None household members: spouse housing: house current occupation: [employer] current occupational exposures/hazards: No caffeine: Yes Have you lived/traveled outside US in past 30 days?: No Contact w/someone who lives/traveled outside US past 30 days?: No Exposure to someone with infectious disease in past 14 days?: No Do you have a fever (greater than 100.4 F or 38 C)?: No Have you tested positive for COVID-19: No Exposed to someone with COVID-19 in past 14 days?: No Do you have a sore throat?: No Do you have a cough?: No Do you have any weakness?: No Do you have any diarrhea?: No Are you experiencing any unusual bleeding?: No Do you have any muscle aches/pain?: No Do you have any abdominal pain?: No Are you experiencing loss of taste or smell?: No Other Medical History Have you received the Flu Vaccine for this season: Yes (2019) Have you received the Pneumonia Vaccine: No ROS Obtained: Yes All systems reviewed & no additional complaints except as documented Physical Exam General General appearance: alert and in no apparent distress Head Head exam: atraumatic and normocephalic Eye Eye exam: Present normal appearance, PERRL and EOMI ENT ENT exam: Present normal exam, normal oropharynx, mucous membranes moist and normal external ear exam Neck Neck exam: Present normal inspection, full ROM and trachea midline; Absent tenderness Chest Chest inspection: Present normal inspection and symmetric chest wall rise; Absent tenderness Respiratory Respiratory exam: Present normal lung sounds bilaterally; Absent respiratory distress, wheezes, stridor or accessory muscle use Cardiovascular Cardiovascular exam: Present regular rate and normal rhythm Abdominal Exam Abdominal exam: Present soft; Absent distention, tenderness or guarding Extremities Exam Extremities exam: Present normal inspection, full ROM and normal capillary refill; Absent tenderness or edema Back Exam Back exam: Present normal inspection and full ROM; Absent tenderness Neurological Exam Neurological exam: Present alert, oriented X3, normal gait, motor sensory deficit and other (Subjective decrease in sensation in the V3 distribution of the left side of the face, giving NIH stroke scale of 1. No other neurologic deficits noted on exam.); Absent CN II-XII intact Psychiatric Psychiatric exam: Present normal affect and normal mood Skin Skin exam: Present warm and dry Medical Decision Making Medical Records Medical records reviewed: Yes I reviewed the patient's medical records. Screening: Per USPSTF and CDC recommendations, given the prevalence of disease in our region, it is our hospital?s policy to screen for HIV and viral Hepatitis for all patients aged 18 and over and those with ongoing risk factors. Angelito Inquiry Pt receiving controlled substance: No Vital Signs: 11/03/24 17:01 11/03/24 17:30 11/03/24 18:00 Temperature 98.7 F Temperature Source Oral Pulse Rate 78 65 Pulse Rate [Left Radial] 82 Respiratory Rate 16 Blood Pressure 118/68 115/65 Blood Pressure [Right Arm] 125/81 Blood Pressure Mean [Right Arm] 95 Blood Pressure Source Blood Pressure Source [Right Arm] Automatic Cuff Blood Pressure Position Blood Pressure Position [Right Arm] Sitting 02 Sat by Pulse Oximetry 98 97 96 Oxygen Delivery Method Room Air Room Air Room Air 11/03/24 18:30 11/03/24 18:59 Temperature 98.2 F Temperature Source Oral Pulse Rate 64 72 Pulse Rate [Left Radial] Respiratory Rate 14 Blood Pressure 112/70 112/70 Blood Pressure [Right Arm] Blood Pressure Mean [Right Arm] Blood Pressure Source Automatic Cuff Blood Pressure Source [Right Arm] Blood Pressure Position Sitting Blood Pressure Position [Right Arm] 02 Sat by Pulse Oximetry 95 Oxygen Delivery Method Room Air Lab Data Lab results reviewed: Yes I reviewed the patient's lab results. Lab Results 11/03/24 17:00: PT 10.2, INR 0.90, APTT 29.3, Sodium 134 L, Potassium 4.3, Chloride 103, Carbon Dioxide 28, Anion Gap 7.3, BUN 18, Creatinine 0.90, Estimated GFR 90, Est GFR ( Amer) 109, Glucose 101 H, Calcium 9.2, Total Bilirubin 0.3, AST 33, ALT 31, Alkaline Phosphatase 77, Troponin I < 0.01, Total Protein 6.9, Albumin 4.4, Globulin 2.5, Albumin/Globulin Ratio 1.8, HCV Ab KAYLEN w/Rflx PCR Qn Negative, HIV Ag/Ab Combo Qual Negative 11/03/24 17:25: WBC 11.7 H, RBC 4.33 L, Hgb 13.4 L, Hct 39.4 L, MCV 91.0, MCH 30.9, MCHC 34.0, RDW 12.4, Plt Count 292, MPV 10.0, Neut % (Auto) 67.2, Lymph % (Auto) 21.5, [place] % (Auto) 9.2, Eos % (Auto) 0.9, Baso % (Auto) 0.9, Neut # (Auto) 7.9 H, Lymph # (Auto) 2.5, [place] # (Auto) 1.1 H, Eos # (Auto) 0.1, Baso # (Auto) 0.1 11/03/24 17:25 11/03/24 17:00 Orders (Tests/Meds): ED MEDICATIONS Discontinued Medications Generic Name Dose Route Start Last Admin Trade Name Rox PRN Reason Stop Dose Admin Acetaminophen 1,000 mg 11/03/24 17:23 11/03/24 17:54 Acetaminophen 1,000mg/100ml Vial IV 11/03/24 17:24 1,000 mg ONCE ONE Administration Sodium Chloride 1,000 mls @ 999 mls/hr 11/03/24 17:23 11/03/24 17:53 Sod Chlor 0.9% 1000ml Bag IV 11/03/24 18:23 999 mls/hr .Q1H1M ONE Administration Iopamidol 80 ml 11/03/24 17:14 11/03/24 17:15 Iopamidol-370 (76%);100ml Bottle IV 11/03/24 17:15 80 ml ONCE ONE Administration Ketorolac Tromethamine 15 mg 11/03/24 17:23 11/03/24 17:55 Ketorolac 30mg/Ml Vial IV 11/03/24 17:24 15 mg ONCE ONE Administration Metoclopramide HCl 5 mg 11/03/24 17:23 11/03/24 17:56 Metoclopramide Hcl 10mg/2ml Vial IVP 11/03/24 17:24 5 mg ONCE ONE Administration Sodium Chloride 10 ml 11/03/24 17:14 11/03/24 17:15 Sodium Chloride 0.9% 10ml Syr (Rad Only) IV 11/03/24 17:15 10 ml ONCE ONE Administration Sodium Chloride 50 ml 11/03/24 17:14 11/03/24 17:15 0.9 % Sodium Chloride 50 Ml Vial IV 11/03/24 17:15 50 ml ONCE ONE Administration ORDERS Category Date Time Status CT angio head Stat Cat Scan 11/03/24 17:[address] angio neck Stat Cat Scan 11/03/24 17:[address] head/brain wo con Stat Cat Scan 11/03/24 17:08 Completed CXR --portable [XR chest portable] Stat Exams 11/03/24 17:08 Taken Complete Blood Count Auto Diff Stat Lab 11/03/24 17:25 Completed Comprehensive Metabolic Panel Stat Lab 11/03/24 17:00 Completed HIV Combo Stat Lab 11/03/24 17:00 Completed Hepatitis C Ab Qual. W/ RFX Stat Lab 11/03/24 17:00 Completed PT INR [Prothrombin Time INR] Stat Lab 11/03/24 17:00 Completed PTT [Activated Partial Thrombo Time] Stat Lab 11/03/24 17:00 Completed Trop I [Troponin I] Stat Lab 11/03/24 17:00 Completed ECG Data Tracing #1: I reviewed this ECG and interpreted as documented below: Normal sinus rhythm with a ventricular rate of 85 bpm. Nonspecific T wave abnormality. No acute STEMI. Normal axis and intervals. ECG initial impression date: 11/03/24 ECG initial impression time: 17:02 Medical Decision Narrative: In summary, this patient is a 49-year-old male presenting to the Emergency Department for evaluation of left-sided facial numbness, headache, and transient episode of visual disturbance that happened around 2:00 PM. Differential diagnoses considered include but are not limited to CVA, intracranial mass, complex migraine, intracranial hemorrhage, anxiety, electrolyte derangements. Ruling out the most morbid conditions drove assessment. It should be noted patient's history includes hypertension and anxiety which may or may not be at goal therapy. This complicates all aspects of care by increasing patient's risk for morbidity. On exam, the patient is well-appearing. He is sitting upright in no acute distress. He has subjective decrease in sensation of the left lower face but otherwise is neurologically intact. Last known normal was effectively 2 PM given visual disturbance noted at that time, though transient. NIH also currently 1. Fingerstick blood glucose obtained was normal. Patient was taken emergently for CT scan for stroke imaging. Workup included lab evaluation as well as CT head, CT angiogram head and neck, chest x-ray, EKG. EKG obtained is reassuring.. I independently interpreted CT head without contrast prior to the radiologist read and noted no large intracranial hemorrhage or space-occupying lesion. Please see their read for final interpretation. I shared imaging with [employer] through [employer] roxanne and had an interactive discussion with Dr. Boyer who advised no ELVO. Patient technically arrives within thrombolytic window, however given low NIH stroke scale of 1. after shared decision-making with the patient, this was not given. It is felt risk does not outweigh the benefit. Given his headache, it is possible this could be a complex migraine, so he was given IV Toradol, Reglan, acetaminophen and a bolus of fluids to assess for symptomatic improvement. On my assessment at 1740, his symptoms had resolved even prior to administration of migraine cocktail. He states he is feeling fine, just a little bit sleepy. On reassessment afterward, he is feeling better and feels like he is ready to go home. I recommended to him that I would start aspirin in case this was a TIA, and he is agreeable with this. He is already on a statin at home. Advise that he follow-up very closely with her primary care as well as with neurology on an outpatient basis. He was given instructions for supportive management and strict return precautions. He was discharged after all questions were answered. Critical Care Critical Care Time Critical Care Time: Yes Attestation: On 11/03/24, the high probability of a clinically significant, sudden or life threatening deterioration of the following system(s) required my full and direct attention, intervention and personal management. The time I documented below is in addition to time spent performing reported procedures but includes the following listed in this critical care notation. Total Time Total Critical Care Time: 45
[2024-11-03 17:30] VITALS: BP 118/68; PULSE 78; O2SAT 97
[2024-11-03 17:34] LABS: Basophils # 0.1 K/mm3 (0-0.2); Basophils % 0.9 % (0.1-2.0); Eosinophils # 0.1 K/mm3 (0.0-0.4); Eosinophils % 0.9 % (0.1-12.0); Hematocrit 39.4 % (42.0-52.0); Hemoglobin 13.4 g/dL (14.1-18.0); Lymphocytes # 2.5 K/mm3 (0.7-4.5); Lymphocytes % 21.5 % (10-50); Mean Corpuscular Hemoglobin 30.9 pg (27.0-31.2); Monocytes # 1.1 K/mm3 (0.1-1.0); Monocytes % 9.2 % (1.7-9.3); Neutrophils # 7.9 K/mm3 (1.8-7.8); Neutrophils % 67.2 % (37.0-80.0); Platelet Count 292 K/mm3 (142-424); Red Blood Count 4.33 M/mm3 (4.60-6.20); Red Cell Distribution Width 12.4 % (11.5-17.5); White Blood Count 11.7 K/mm3 (4.8-10.8)
[2024-11-03] MEDS: 0.9 % SODIUM CHLORIDE 1000ML 1,000 ML 999 ML IV (17:53)
[2024-11-03] MEDS: ACETAMINOPHEN 1,000MG/100ML VIAL 1000 MG IV (17:54)
[2024-11-03] MEDS: KETOROLAC 30MG/ML VIAL 15 MG IV (17:55)
[2024-11-03] MEDS: METOCLOPRAMIDE HCL 10MG/2ML VIAL 5 MG IVP (17:56)
[2024-11-03 18:00] VITALS: BP 115/65; PULSE 65; O2SAT 96
[2024-11-03 18:06] LABS: Troponin I < 0.01 ng/ml (0.00-0.034)
[2024-11-03 18:14] LABS: Albumin Level 4.4 g/dl (3.5-5.0); Albumin/Globulin Ratio 1.8 (1.1-1.8); Anion Gap 7.3 mEq/L (5-15); Carbon Dioxide 28 mmol/L (22.0-30.0); Globulin 2.5 g/dL (1.3-3.2)
[2024-11-03 18:30] VITALS: BP 112/70; PULSE 64; O2SAT 95
[2024-11-03 18:59] VITALS: BP 112/70; PULSE 72; RESP 14; TEMP 36.8; O2SAT 98
[2024-11-03 19:18] LABS: HIV Combo NEGATIVE (Negative)
[2024-11-03 19:26] LABS: Hepatitis C Ab Qual. W/ RFX NEGATIVE (Negative)
== END 2024-11-03 18:59 | disposition home or self-care (01) ==
PROVIDERS: Emergency Provider Emergency Medicine
DX: R29.810 Facial weakness (principal); R51.9 Headache, unspecified; H53.9 Unspecified visual disturbance; R29.818 Other symptoms and signs involving the nervous system
CPT/HCPCS: 70450; 70496; 70498; 71045; 80053; 84484; 85025; 85610; 85730; 86803; 87389; 93005; 96361; 96374; 96375; 99291; J0131; J1885; J2765; J7030; Q9967

== ENCOUNTER 2025-07-31 14:05 | Emergency (ER) | payer BC, SELFPAY ==
--- OUTSIDE RECORDS SUMMARY | 2024-06-05 05:45 | XMS_ITS ---
Author Organization [facility] Address [address] [place] [id number] Care Team Providers Care Sound Truck Operator Name Role Phone Bhargav Soni Primary Care Provider REASON FOR VISIT 4 week fu Encounters Encounter Location Date Provider Diagnosis [facility] [address] [place] [id number] 06/05/2024 Bhargav Soni Plan Of Treatment No Information Progress Notes * MAJORYARELIS JarrodJesusOB: [birth year] (50 yo M)Acc No.[id number]:06/05/2024 Progress Notes Patient: Yair GARCIA Provider: Deborah Soni M.D. :1975 A ge:49 Y S ex:Male Date:06/05/2024 Phone: Address:[address], [id number] Subjective: * Chief Complaints: * 1 . 4 week fu. * Medical History: Objective: * Vitals: Assessment: Plan: * Treatment: * Images: Billing Information: * Visit Code: * Procedure Codes: * Electronic signature of Yadira Soni MD on 07/31/2025 at 02:12 PM EDT Sign off status: Pending * Provider: Deborah Soni M.D. Date: 0 06/05/2024 Generated for Printi ng/Faxing/eTransmitting on: 1 02:12 PM EDT
--- OUTSIDE RECORDS SUMMARY | 2024-07-09 05:45 | XMS_ITS ---
Author Organization [facility] Address [address] [place] [id number] Care Team Providers Care Linux Systems Administrator Name Role Phone NaeSalomónBhargav Primary Care Provider [phone] Allergies No Known Allergies Results Component Value Reference Range Notes Glucose (In-House) Reviewed date:07/10/2024 09:00:08 AM Interpretation:109 Performing Lab: Notes/Report: 109 blood glucose 109 74 - 106 mg/dL Glycohemoglobin A1c (in hous e) Reviewed date:07/10/2024 09:00:08 AM Interpretation:5.7% Performing Lab: Notes/Report: 5.7% glycohemoglobin 5.7% 5 - 6.5 % P-Comprehensive Metabolic Pa naomi (CMP) Reviewed date:07/10/2024 09:00:07 AM Interpretation:Normal Performing Lab: Notes/Report: Test performed by [facility] [address] [place] [address] , [address], [place] [address] Blas Dinh MD, Engine Repairer CLIA: [id number] Sodium 141 135-145 mmol/L Potassium 4.2 3.5-5.3 mmol/L Chloride 106 97-108 mmol/L CO2 25 22-32 mmol/L Glucose 98 65-99 mg/dL BUN 12 6-20 mg/dL Creatinine 0.76 0.70-1.30 mg/dL Calcium 9.5 8.6-10.4 mg/dL eGFR by Creatinine 111 >59 mL/min/1.73m2 Protein 6.5 6.0-8.3 g/dL Albumin 4.4 3.5-5.3 g/dL Alkaline Phosphatase 74 40-129 IU/L ALT (SGPT) 22 <5-55 IU/L AST (SGOT) 19 <5-46 IU/L Bilirubin, Total 0.2 <0.2-1.2 mg/dL A/G Ratio 2.1 1.1-2.5 P-Lipid Panel Reviewed date:07/10/2024 09:00:08 AM Interpretation:chol 205, trigs 167 Performing Lab: Notes/Report: Test performed by [facility] [address] , [place] [address] Blas Dinh MD, Engine Repairer CLIA: [id number] Cholesterol 205 <200 mg/dL Triglycerides 167 <150 mg/dL HDL Cholesterol 84 >39 mg/dL Cholesterol / HDL Ratio 2.44 0.00-4.99 Ratio Non-HDL Cholesterol 121 <130 mg/dL LDL Cholesterol (Calculation) 88 <130 mg/dL LDL Cholesterol Levels* Less than 100 mg/dL Optimal 100 to 129 mg/dL Near Optimal/ Above Optimal 130 to 159 mg/dL Borderline High 160 to 189 mg/dL High 190 mg/dL and above Very High * Categories as recommended by the 2004 ATPIII guidelines LDL/HDL Ratio 1.0 <3.3 Ratio LDL Cholesterol Patient History Test Date: 12/16/2023 LDL Results: 133 Units: mg/dL % Change: - Test Date: 05/07/2024 LDL Results: 166 Units: mg/dL % Change: +24% Test Date: 07/09/2024 LDL Results: 88 Units: mg/dL % Change: -46% REASON FOR VISIT 6 weeks Medications Medication SIG (Take, Route, Frequency, Duration) Notes Start Date End Date Status Losartan Potassium 50 MG 1 tablet Orally Once a day 12/16/2023 Active Rosuvastatin Calcium 20 MG 1 tablet Oral ly Once a day 05/08/2024 Active Sertraline HCl 50 MG 1 tablet Orally Onc e a day 05/28/2024 Active Fluticasone Propionate 50 MCG/ACT 1 spray in each nostril Nasally Once a day 01/06/2024 Active Loratadine 10 MG 1 tablet Orally Once a day; Duration: 30 days Active Vital Signs Blood pressure systolic 120 mm Hg 07/09/20 24 Blood pressure diastolic 82 mm Hg 024 Heart Rate 83 /min 07/09/2024 Height 69 in 07/09/2024 Weight 163.6 lbs 07/09/2024 BMI 24.16 kg/m2 07/09/2024 Encounters Encounter Location Date Provider Diagnosis [facility] [address] [place], [place] [id number] 07/09/2024 Bhargav [place] Essential hypertensi on I10 ; Pure hypercholesterolemia E78.00 ; Hyperglycemia R73.9 and Depression with anxiety F41.8 Assessments Encounter Date Diagnosis (ICD Code) Assessment Notes Treatment Notes Treatment Clinical Notes Section Notes 07/09/2024 Essential hypertensi on (ICD-10 - I10) 07/09/2024 Pure hypercholesterolemia (ICD-10 - E78.00) 07/09/2024 Hyperglycemia (ICD-1 0 - R73.9) 07/09/2024 Depression with anxi ety (ICD-10 - F41.8) Plan Of Treatment Medication Medication Name Sig Start Date Stop Date Notes Losartan Potassium 50 MG 1 tablet Orally Once a day 2023 Rosuvastatin Calcium 20 MG 1 tablet Orally Once a day 04/20 Sertraline HCl 50 MG 1 tablet Orally Once a day 05/28/2024 Next Appt Details Follow Up: 6 Months, Reason: Progress Notes * Rashard ORTIZOB: [birth year] (50 yo M)Acc No.[id number]:07/09/2024 Progress Notes Patient: Yair GARCIA Provider: Deborah Soni M.D. :1975 A ge:49 Y S ex:Male Date:07/09/2024 Phone: [facility] [address] [address] [place], [id number] Subjective: * Chief Complaints: * 1 . 6 weeks. * HPI: C ardiology: 49 year old male presents with c/o Blood Pressure Elevated P t here to f/u on hypertension, states he is doing well and does not have any concerns. c/o Hyperlipidemia P t is fasting today. * ROS: D ERMATOLOGY: no R good. n o H paulino. G ASTROENTEROLOGY: no N ausea. n o V omiting. U ROLOGY: no D ifficulty urinating. n o B lood in urine. * Medical History: A nxiety disorder, OCD, Esophageal reflux, Hypertension, C5-C6 disc herniation 2013, Hyperlipidemia. * Surgical History: D iscectomy, C5-C6 11/2013, Cervical Fusion, C5-C6 11/2013. * Hospitalization/Major Diagno stic Procedure: A nxiety- H 2004, Possible Herniates Disc- [facility] ER 2012, LT Foot Cellulitis- [facility] ER 01/22/2016. * Family History: F ather: alive. M other: alive. 2 son(s) , 2 daughter(s) - healthy. . * Social History: C URRENT TOBACCO USE S moking Status: Patient does smoke, packs per day: 1, Since age of: 11. C affeine: yes, frequency: 1 pot of coffee a day. Exercise: no. Marital Status: . Alcohol: Yes, occasional. Sexually active: yes. * Medications: T aking Losartan Potassium 50 MG Tablet 1 tablet Orally Once a day , Taking Fluticasone Propionate 50 MCG/ACT Suspension 1 spray in each nostril Nasally Once a day , Taking Loratadine 10 MG Tablet 1 tablet Orally Once a day , Taking Rosuvastatin Calcium 20 MG Tablet 1 tablet Orally Once a day , Taking Sertraline HCl 50 MG Tablet 1 tablet Orally Once a day , Medication List reviewed and reconciled with the patient * Allergies: N .K.D.A. Objective: * Vitals: W t:163.6, Temp:97.9, BP:120/82, HR:83, Nurse:quentin, Ht: 69, BMI:24.16. * Examination: P sychology: General Appearance: N AD. G rooming : a dequate.?Eye contact : n orprasanna. M ood : p leasant. H eart: R SR. L ungs: c lear to auscultation. Assessment: * Assessment: 1. E ssential hypertension - I10 (Primary) 2 . P ure hypercholesterolemia - E78.00 3 . H yperglycemia - R73.9 4 . D epression with anxiety - F41.8 Plan: * Treatment: 2. P ure hypercholesterolemia Continue Rosuvastatin Calcium Tablet, 20 MG, 1 tablet, Orally, Once a day. L AB: P-Comprehensive Metabolic Panel (CMP) (Collection Date & Time - 07/09/2024 09:05 AM) N ormal Value Reference Range A /G Ratio 2.1 1.1-2.5 - * A lbumin 4.4 3.5-5.3 - g/dL * A lkaline Phosphatase 74 40-129 - IU/L * A LT (SGPT) 22 <5-55 - IU/L * A ST (SGOT) 19 <5-46 - IU/L * B ilirubin, Total 0.2 <0.2-1.2 - mg/dL * B UN 12 6-20 - mg/dL * C alcium 9.5 8.6-10.4 - mg/dL * C hloride 106 97-108 - mmol/L * C O2 25 22-32 - mmol/L * C reatinine 0.76 0.70-1.30 - mg/dL * G lucose 98 65-99 - mg/dL * P otassium 4.2 3.5-5.3 - mmol/L * S odium 141 135-145 - mmol/L * P rotein 6.5 6.0-8.3 - g/dL * e GFR by Creatinine 111 >59 - mL/min/1.73m2 * Rajani Rosa 07/10/2024 8:59: 59 AM >See phone encounter ?LAB: P-Lipid Panel (Collection Date & Time - 07/09/2024 09:05 AM)?chol 205, trigs 167* Value Reference Range C holesterol / HDL Ratio 2.44 0.00-4.99 - Ratio * C holesterol 205 H <200 - mg/dL * H DL Cholesterol 84 >39 - mg/dL * L DL Cholesterol (Calculation) 88 <130 - mg/d L * L DL/HDL Ratio 1.0 <3.3 - Ratio * N on-HDL Cholesterol 121 <130 - mg/dL * T riglycerides 167 H <150 - mg/dL * Rajani Rosa 07/10/2024 8:59: 59 AM >See phone encounter 3.?Hyperglycemia?LAB: P-Comprehensive Metabolic Panel (CMP) (Collection Date & Time - 07/09/2024 09:05 AM)?Normal* Value Reference Range A /G Ratio 2.1 1.1-2.5 - * A lbumin 4.4 3.5-5.3 - g/dL * A lkaline Phosphatase 74 40-129 - IU/L * A LT (SGPT) 22 <5-55 - IU/L * A ST (SGOT) 19 <5-46 - IU/L * B ilirubin, Total 0.2 <0.2-1.2 - mg/dL * B UN 12 6-20 - mg/dL * C alcium 9.5 8.6-10.4 - mg/dL * C hloride 106 97-108 - mmol/L * C O2 25 22-32 - mmol/L * C reatinine 0.76 0.70-1.30 - mg/dL * G lucose 98 65-99 - mg/dL * P otassium 4.2 3.5-5.3 - mmol/L * S odium 141 135-145 - mmol/L * P rotein 6.5 6.0-8.3 - g/dL * e GFR by Creatinine 111 >59 - mL/min/1.73m2 * Rajani Rosa 07/10/2024 8:59: 59 AM >See phone encounter ?LAB: Glucose (In-House) (Collection Date & Time - 07/09/2024)?109* Value Reference Range b lood glucose 109 74 - 106 mg/dL * Arleen No 07/09/2024 11:3 4:58 AM > Rajani Rosa 07/10/2024 8:59:59 AM >See phone encounter ?LAB: Glycohemoglobin A1c (in house) (Collection Date & Time - 07/09/2024)? 5.7%* Value Reference Range g lycohemoglobin 5.7% 5 - 6.5 % * Arleen No 07/09/2024 11:3 5:23 AM > Rajani Rosa 07/10/2024 8:59:59 AM >See phone encounter 4.?Depression with anxiety? Continue Sertraline HCl Tablet, 50 MG, 1 tablet, Orally, Once a day.?? * Procedure Codes: 8 2950 GLUCOSE TEST, 63331 GLYCATED HEMOGLOBIN TEST, Modifiers: QW * Follow Up: 6 Months * Images: Billing Information: * Visit Code: 91426 Office Visit, Est Pt., Level 4. * Procedure Codes: 61091 GLUCOSE TEST. 79900 GLYCATED HEMOGLOBIN TEST. Modifiers: QW * Electronic signature of Yadira Soni MD on 07/31/2025 at 02:13 PM EDT Sign off status: Pending * Provider: Deborah Soni M.D. Date: 0 07/09/2024 Generated for Andrés bueno/Rober/eTransmitting on: 1 02:13 PM EDT History and Physical Notes * HPI (History of Present Illness) Category Sub-Category Detail Notes Category Not es Cardiology Blood Pressure Elevated Pt here to f/u on hypertension, states he is doing well and does not have any concerns Hyperlipidemia Pt is fasting today Examination Category Sub-Category Detail Notes Category Not es Psychology Heart: RSR Lungs: clear to auscultatio n General Appearance: NAD Grooming : adequate Eye contact : normal Mood : pleasant
--- OUTSIDE RECORDS SUMMARY | 2024-11-12 06:00 | XMS_ITS ---
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 Name Role Phone Bhargav Soni Primary Care Provider Allergies No Known Allergies Reason For Referral Diagnosis 1 Nonintractable heada luciana, unspecified chronicity pattern, unspecified headache type (R51.9) Diagnosis 2 Transient neurologic al symptoms (R29.818) [facility] Referring Provider First Name Bhargav Referring Provider Last Name Nae Referring Provider Speciality Family Pra brandenice Referred Provider Anai Quinones Referred Provider Specialty Neurology General Notes Patti Giron 11/12/19 10:13:49 AM > faxed to [facility] Neurology, Patti Giron 11/16/2024 9:06:59 AM > 03/12/2025 at 01:00pm Referral Priority Routine REASON FOR VISIT [facility] ER f/u Medications Medication SIG (Take, Route, Frequency, Duration) Notes Start Date End Date Status Loratadine 10 MG 1 tablet Orally Once a day; Duration: 30 days Active Sertraline HCl 50 MG 1 tablet Orally Onc e a day; Duration: 30 days Active Losartan Potassium 50 MG 1 tablet Orally Once a day; Duration: 90 days Active Aspirin 81 MG 1 tablet Orally Once a day Active Fluticasone Propionate 50 MCG/ACT 1 spray in each nostril Nasally Once a day 01/06/2024 Active Rosuvastatin Calcium 20 MG 1 tablet Oral ly Once a day; Duration: 90 days Active Vital Signs Blood pressure systolic 130 mm Hg 11/12/19 25 Blood pressure diastolic 82 mm Hg 01/23/2 025 Heart Rate 86 /min 11/12/2024 Height 69 in 11/12/2024 Weight 163 lbs 11/12/2024 BMI 24.07 kg/m2 11/12/2024 Encounters Encounter Location Date Provider Diagnosis [facility] [address] [place] [id number] 11/12/2024 Bhargav Soni Transient neurologic al symptoms R29.818 and Nonintractable headache, unspecified chronicity pattern, unspecified headache type R51.9 Assessments Encounter Date Diagnosis (ICD Code) Assessment Notes Treatment Notes Treatment Clinical Notes Section Notes 11/12/2024 Transient neurological symptoms (ICD-10 - R29.818) ER notes, labs and radiology reports reviewed in office today. 11/12/2024 Nonintractable headache, unspecified chronicity pattern, unspecified headache type (ICD-10 - R51.9) Plan Of Treatment Medication Medication Name Sig Start Date Stop Date Notes Aspirin 81 MG 1 tablet Orally Once a day Treatment Notes Assessment Notes Transient neurological symptoms ER notes , labs and radiology reports reviewed in office today. Referrals Referral Date Details 11/12/2024 11/12/2024, Aani dwyer Next Appt Details Follow Up: via phone to repo rt progress, Reason: Progress Notes * Jarrod ORTIZJesusOB: [birth year] (50 yo M)Acc No.[id number]:11/12/2024 Patient: Yair GARCIA Provider: Deborah Soni M.D. :1975 A ge:49 Y S ex:Male Date:11/12/2024 Phone: Address: [address], [place], [id number] Subjective: * Chief Complaints: * 1 . [facility] ER f/u. * HPI: H PI: 49 year old male presents with c/o Here for follow up on: 0 11/03/2024 [facility] er visit. Pt went to er for lt side facial numbness and headache. Pt states he was advised to PCP to get referral to Neurology. Pt states numbness has improved and he has not had any issues. * ROS: D ERMATOLOGY: no R good. [...] * Hospitalization/Major Diagno stic Procedure: A nxiety- [facility] 2004, Possible Herniates Disc- [facility] ER 2012, LT Foot Cellulitis- [facility] ER 01/22/2016. * Family History: F ather: [...] Sexually active: yes. * Medications: T aking Aspirin 81 MG Tablet Delayed Release 1 tablet Orally Once a day , Taking Fluticasone Propionate 50 MCG/ACT Suspension 1 spray in each nostril Nasally Once a day , Taking Loratadine 10 MG Tablet 1 tablet Orally Once a day , Taking Sertraline HCl 50 MG Tablet 1 tablet Orally Once a day , Taking Losartan Potassium 50 MG Tablet 1 tablet Orally Once a day , Taking Rosuvastatin Calcium 20 MG Tablet 1 tablet Orally Once a day , Medication List reviewed and reconciled with the patient * Allergies: N .K.D.A. Objective: * Vitals: W t:163, Temp:97.8, BP:130/82, HR:86, Nurse:quentin, Ht: 69, BMI:24.07. * Examination: G eneral Examination: General Appearance: N AD. H eart: R SR. L ungs:?clear to auscultation. N eurologic Exam: normal cranial nerves II-XII sensory & motor WNL, DTR 2 plus. Assessment: * Assessment: 1. T ransient neurological symptoms - R29.818 (Primary) 2 . N onintractable headache, unspecified chronicity pattern, unspecified headache type - R51.9 Plan: * Treatment: 2. N onintractable headache, unspecified chronicity pattern, unspecified headache type Referral To:Anai Quinones Neurology Reason: * Follow Up: v ia phone to report progress * Images: Billing Information: * Visit Code: 12279 Office Visit, Est Pt., Level 4. * Procedure Codes: * Electronic signature of Yadira Soni MD on 07/31/2025 at 02:12 PM EDT Sign off status: Pending * Provider: Deborah Soni M.D. Date: 0 11/12/2024 Generated for Andrés bueno/Rober/eTransmitting on: 02:12 PM EDT History and Physical Notes * HPI (History of Present Illness) Category Sub-Category Detail Notes Category Not es HPI Here for follow up on: 5 [facility] er visit. Pt went to er for lt side facial numbness and headache. Pt states he was advised to PCP to get referral to Neurology. Pt states numbness has improved and he has not had any issues Examination Category Sub-Category Detail Notes Category Not es General Examination Heart: RSR Lungs: clear to auscultatio n General Appearance: NAD Neurologic Exam: normal cranial nerve s II-XII sensory & motor WNL, DTR 2 plus Consultation Request Notes Referral Date Referring Provider Referred Provider Not es 11/12/2024 Bhargav Soni Maria
--- OUTSIDE RECORDS SUMMARY | 2025-01-01 06:15 | XMS_ITS ---
Author Organization [facility] Address [address] [facility] [address] [place] [id number] Care Team Providers Care Agile Project Manager Name Role Phone Bhargav Soni Primary Care Provider [phone] Allergies No Known Allergies REASON FOR VISIT 6 months Encounters Encounter Location Date Provider Diagnosis [facility] [address] [facility] [address] [place] [id number] 01/01/2025 Bhargav Soni Plan Of Treatment No Information Progress Notes * Rashard ORTIZOB: [birth year] (50 yo M)Acc No.[id number]:01/01/2025 Progress Notes Patient: Yair GARCIA Provider: Deborah Soni M.D. :1975 A ge:49 Y S ex:Male Date:01/01/2025 Phone: Address:[address], [id number] Subjective: * Chief Complaints: * 1 . 6 months. * HPI: C ardiology: 49 year old male presents with c/o BloodPressure at Home P t here for 6 mo f/u on hypertension, states he is doing [...] A nxiety- H 2004, Possible Herniates Disc- [facility] ER 2012, LT Foot Cellulitis- [facility] ER 01/22/2016. * Family History: [...] Alcohol: Yes, occasional. Sexually active: yes. * Allergies: N .K.D.A. Objective: * Vitals: Assessment: Plan: * Treatment: * Images: Billing Information: * Visit Code: * Procedure Codes: * Electronic signature of Yadira Soni MD on 07/31/2025 at 02:12 PM EDT Sign off status: Pending * Provider: Deborah Soni M.D. Date: 0 01/01/2025 Generated for Andrés bueno/Rober/Juanitting on: 1 02:12 PM EDT History and Physical Notes * HPI (History of Present Illness) Category Sub-Category Detail Notes Category Not es Cardiology BloodPressure at Home Pt here fo r 6 mo f/u on hypertension, states he is doing well and does not have any concerns Hyperlipidemia Pt is fasting today
--- OUTSIDE RECORDS SUMMARY | 2025-05-27 06:30 | XMS_ITS ---
Author Organization [facility] Address [address] [place] [id number] Care Team Providers Care [facility] Director Name Role Phone Bhargav Soni Primary Care Provider Allergies No Known Allergies Results Component Value Reference Range Notes CBC Venipuncture (in house) Reviewed date:05/27/2025 12:38:01 PM Interpretation: Performing Lab: Notes/Report: wbc 12.5 3.5 - 10 lymph 18.7% 15 - 50 mid 5.7% 2 - 15 gran 75.6% 35 - 80 rbc 5.10 3.5 - 5.5 hgb 16.1 11.5 - 16.5 hct 47.5 35 - 55 mcv 93.1 75 - 100 mch 31.5 25 - 35 mchc 33.9 31 - 38 platlet 319 100 - 400 P-Comprehensive Metabolic Pa naomi (CMP) Reviewed date:05/28/2025 11:11:10 AM Interpretation:gluc 104 Performing Lab: Notes/Report: Test performed by [facility] [address] [place] [address] , [address], [address] Blas Dinh MD, [employer]action And [employer] Helper CLIA: [id number] Sodium 140 135-145 mmol/L Potassium 4.4 3.5-5.3 mmol/L Chloride 101 97-108 mmol/L CO2 26 20-32 mmol/L Glucose 104 65-99 mg/dL BUN 17 6-20 mg/dL Creatinine 0.97 0.70-1.30 mg/dL Calcium 9.7 8.6-10.4 mg/dL eGFR by Creatinine 96 >59 mL/min/1.73m2 Protein 7.2 6.0-8.3 g/dL Albumin 4.8 3.5-5.3 g/dL Alkaline Phosphatase 87 40-129 IU/L ALT (SGPT) 18 <5-55 IU/L AST (SGOT) 23 <5-46 IU/L Bilirubin, Total 0.5 <0.2-1.2 mg/dL A/G Ratio 2.0 1.1-2.5 P-Lipid Panel Reviewed date:05/28/2025 11:11:10 AM Interpretation:Normal Performing Lab: Notes/Report: Test performed by [email or web address] [employer] [address] [place] [address] , [address], [place] [address] Blas Dinh MD, Liquefaction And Reg[employer]ification Helper CLIA: [id number] Cholesterol 198 <200 mg/dL Triglycerides 87 <150 mg/dL HDL Cholesterol 91 >39 mg/dL Cholesterol / HDL Ratio 2.18 0.00-4.99 Ratio Non-HDL Cholesterol 107 <130 mg/dL LDL Cholesterol (Calculation) 90 <130 mg/dL LDL Cholesterol Levels* Less than 100 mg/dL Optimal 100 to 129 mg/dL Near Optimal/ Above Optimal 130 to 159 mg/dL Borderline High 160 to 189 mg/dL High 190 mg/dL and above Very High * Categories as recommended by the 2004 ATPIII guidelines LDL/HDL Ratio 1.0 <3.3 Ratio LDL Cholesterol Patient History Test Date: 05/07/2024 LDL Results: 166 Units: mg/dL % Change: +24% Test Date: 07/09/2024 LDL Results: 88 Units: mg/dL % Change: -46% Test Date: 05/27/2025 LDL Results: 90 Units: mg/dL % Change: +2% P-TSH reflex to FT4 Reviewed date:05/28/2025 11:11:10 AM Interpretation:Normal Performing Lab: Notes/Report: Test performed by [facility] [address] [place], [place] [address] , [facility], [place] [address] Blas Dinh MD, [employer]action And [employer] Helper CLIA: [id number] TSH reflex to FT4 1.22 0.43-5.25 mU/L P-Microalbumin/Creatinine, R andom Urine Sample Reviewed date:05/28/2025 11:11:10 AM Interpretation:a/c 48 Performing Lab: Notes/Report: Test performed by [facility] [address] [place], [place] [address] [address], [place] [address] Blas Dinh MD, [employer]action And [employer] Helper CLIA: [id number] Albumin/Creatinine Ratio, Urine 48 0-30 ug/m g Microalbumin, Urine, Random 15.4 Creatinine, Urine 323.1 REASON FOR VISIT ckup & refills Medications Medication SIG (Take, Route, Frequency, Duration) Notes Start Date End Date Status Rosuvastatin Calcium 20 MG 1 tablet Oral ly Once a day; Duration: 90 days Active Sertraline HCl 100 MG 1 tablet Orally On ce a day; Duration: 90 days 05/27/2025 Active Loratadine 10 MG 1 tablet Orally Once a day; Duration: 30 days Active Aspirin 81 MG 1 tablet Orally Once a day Active Losartan Potassium 50 MG 1 tablet Orally Once a day; Duration: 90 days Active Fluticasone Propionate 50 MCG/ACT 1 spray in each nostril Nasally Once a day 01/06/2024 Active Problems Problem Type SNOMED Code ICD Code Onset Dates Problem Status W/U Status Risk Notes Problem Gastroesophageal reflux disease (930980822) GERD without esophagitis (K21.9) Active confirmed Vital Signs Blood pressure systolic 130 mm Hg 05/27/20 25 Blood pressure diastolic 80 mm Hg 025 Heart Rate 86 /min 05/27/2025 Height 69 in 05/27/2025 Weight 166.2 lbs 05/27/2025 BMI 24.54 kg/m2 05/27/2025 Encounters Encounter Location Date Provider Diagnosis [facility] [address] [facility] [address] [place] [address], [place] [id number] 05/27/2025 Bhargav Soni Essential hypertensi on I10 ; Pure hypercholesterolemia E78.00 ; Depression with anxiety F41.8 ; GERD without esophagitis K21.9 ; 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 and BMI 24.0-24.9, adult Z68.24 Assessments Encounter Date Diagnosis (ICD Code) Assessment Notes Treatment Notes Treatment Clinical Notes Section Notes 05/27/2025 Essential hypertensi on (ICD-10 - I10) 05/27/2025 Pure hypercholesterolemia (ICD-10 - E78.00) 05/27/2025 Depression with anxi ety (ICD-10 - F41.8) 05/27/2025 GERD without esophag itis (ICD-10 - K21.9) 05/27/2025 detention use of marlo g (ICD-10 - Z79.899) 05/27/2025 BMI 24.0-24.9, adult (ICD-10 - Z68.24) Plan Of Treatment Medication Medication Name Sig Start Date Stop Date Notes Rosuvastatin Calcium 20 MG 1 tablet Oral ly Once a day; Duration: 90 days Sertraline HCl 50 MG Take 1 tablet by [facility] [place] once daily Sertraline HCl 100 MG 1 tablet Orally On ce a day; Duration: 90 days 05/27/2025 Losartan Potassium 50 MG 1 tablet Orally Once a day; Duration: 90 days Next Appt Details Follow Up: 6 Months, Reason: Progress Notes * Rashard ORTIZOB: [birth year] (50 yo M)Acc No.[id number]:05/27/2025 Progress Notes Patient: Yair GARCIA Provider: Deborah Soni M.D. :1975 A ge:50 Y S ex:Male Date:05/27/2025 Phone: Address: [address], [place], [id number] Subjective: * Chief Complaints: * 1 . Ckup & refills. * HPI: C ardiology: 50 year old male presents with c/o Blood Pressure Elevated P t here for check up on hypertension. Pt states he is doing well and does not have any concerns?. c/o Hyperlipidemia P t is fasting today. E ndocrinology: c/o Hypothyroidism P t here to f/u. * ROS: D ERMATOLOGY: no R good. [...] * Hospitalization/Major Diagno stic Procedure: A nxiety- [facility] 2004, Possible Herniates Disc- [facility] 2012, LT Foot Cellulitis- [facility] 01/22/2016. * Family History: [...] Sexually active: yes. * Medications: T aking Fluticasone Propionate 50 MCG/ACT Suspension 1 spray in each nostril Nasally Once a day , Taking Loratadine 10 MG Tablet 1 tablet Orally Once a day , Taking Rosuvastatin Calcium 20 MG Tablet 1 tablet Orally Once a day , Taking Aspirin 81 MG Tablet Delayed Release 1 tablet Orally Once a day , Taking Sertraline HCl 50 MG Tablet Take 1 tablet by mouth once daily , Taking Losartan Potassium 50 MG Tablet 1 tablet Orally Once a day , Medication List reviewed and reconciled with the patient * Allergies: N .K.D.A. Objective: * Vitals: W t: 166.2, Temp: 98.0, BP: 130/80, HR: 86, Nurse: quentin, Ht: 69, BMI:24.54. * Examination: P sychology: General Appearance: N AD. G rooming : a niko.?Eye contact : casey rea. M ood : filemon lemitch. H eart: R SR. L ungs: c lear to auscultation. Assessment: * Assessment: 1. E ssential hypertension - I10 (Primary) 2 . P ure hypercholesterolemia - E78.00 3 . D epression with anxiety - F41.8 4 . G ERD without esophagitis - K21.9 5 . L trino term use of drug - Z79.899 6 .?BMI 24.0-24.9, adult - Z68.24 Plan: * Treatment: Value Reference Range A /G Ratio 2.0 1.1-2.5 - * A lbumin 4.8 3.5-5.3 - g/dL * A lkaline Phosphatase 87 40-129 - IU/L * A LT (SGPT) 18 <5-55 - IU/L * A ST (SGOT) 23 <5-46 - IU/L * B ilirubin, Total 0.5 <0.2-1.2 - mg/dL * B UN 17 6-20 - mg/dL * C alcium 9.7 8.6-10.4 - mg/dL * C hloride 101 97-108 - mmol/L * C O2 26 20-32 - mmol/L * C reatinine 0.97 0.70-1.30 - mg/dL * G lucose 104 H 65-99 - mg/dL * P otassium 4.4 3.5-5.3 - mmol/L * S odium 140 135-145 - mmol/L * P rotein 7.2 6.0-8.3 - g/dL * e GFR by Creatinine 96 >59 - mL/min/1.73m2 * Rajani Rosa 05/28/2025 11:11 :03 AM EDT > See phone encounter ?LAB: P-Microalbumin/Creatinine, Random Urine Sample (Collection Date & Time - 05/27/2025 10:35 AM)?a/c 48* Value Reference Range A lbumin/Creatinine Ratio, Urine 48 H 0-30 - ug /mg * C reatinine, Urine 323.1 - mg/dL * M icroalbumin, Urine, Random 15.4 - mg/dL * Rajani Rosa 05/28/2025 11:11 :03 AM EDT > See phone encounter 2.?Pure hypercholesterolemia? Refill Rosuvastatin Calcium Tablet, 20 MG, 1 tablet, Orally, Once a day, 90 days, 90, Refills 1. ?LAB: P-Comprehensive Metabolic Panel (CMP) (Collection Date & Time - 05/27/2025 10:35 AM)?gluc 104* Value Reference Range A /G Ratio 2.0 1.1-2.5 - * A lbumin 4.8 3.5-5.3 - g/dL * A lkaline Phosphatase 87 40-129 - IU/L * A LT (SGPT) 18 <5-55 - IU/L * A ST (SGOT) 23 <5-46 - IU/L * B ilirubin, Total 0.5 <0.2-1.2 - mg/dL * B UN 17 6-20 - mg/dL * C alcium 9.7 8.6-10.4 - mg/dL * C hloride 101 97-108 - mmol/L * C O2 26 20-32 - mmol/L * C reatinine 0.97 0.70-1.30 - mg/dL * G lucose 104 H 65-99 - mg/dL * P otassium 4.4 3.5-5.3 - mmol/L * S odium 140 135-145 - mmol/L * P rotein 7.2 6.0-8.3 - g/dL * e GFR by Creatinine 96 >59 - mL/min/1.73m2 * Rajani Rosa 05/28/2025 11:11 :03 AM EDT > See phone encounter ?LAB: P-Lipid Panel (Collection Date & Time - 05/27/2025 10:35 AM)?Normal* Value Reference Range C holesterol / HDL Ratio 2.18 0.00-4.99 - Ratio * C holesterol 198 <200 - mg/dL * H DL Cholesterol 91 >39 - mg/dL * L DL Cholesterol (Calculation) 90 <130 - mg/d L * L DL/HDL Ratio 1.0 <3.3 - Ratio * N on-HDL Cholesterol 107 <130 - mg/dL * T riglycerides 87 <150 - mg/dL * Rajani Rosa 05/28/2025 11:11 :03 AM EDT > See phone encounter ?LAB: P-TSH reflex to FT4 (Collection Date & Time - 05/27/2025 10:35 AM)? Normal* Value Reference Range T SH reflex to FT4 1.22 0.43-5.25 - mU/L * Rajani Rosa 05/28/2025 11:11 :03 AM EDT > See phone encounter 3.?Depression with anxiety? 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?LAB: CBC Venipuncture (in house) (Collection Date & Time - 05/27/2025)* Value Reference Range w bc 12.5 3.5 - 10 * l ymph 18.7% 15 - 50 * m id 5.7% 2 - 15 * g ran 75.6% 35 - 80 * r bc 5.10 3.5 - 5.5 * h gb 16.1 11.5 - 16.5 * h ct 47.5 35 - 55 * m cv 93.1 75 - 100 * m ch 31.5 25 - 35 * m chc 33.9 31 - 38 * p latlet 319 100 - 400 * Khushboo Perez 05/27/2025 12:01:2 9 PM EDT >Bhargav Soni 05/27/2025 12:37:49 PM EDT > * Procedure Codes: 8 5025 CBC WITH AUTO DIFF, 3075F SYST BP GE 130 - 139MM HG, 3079F DIAST BP 80-89 MM HG * Follow Up: 6 Months * Images: Billing Information: * Visit Code: 91658 Office Visit, Est Pt., Level 4. * Procedure Codes: 71918 CBC WITH AUTO DIFF. 3075F SYST BP GE 130 - 139MM HG. 3079F DIAST BP 80-89 MM HG. * Electronic signature of Yadira Soni MD on 07/31/2025 at 02:12 PM EDT Sign off status: Pending * Provider: Deborah Soni M.D. Date: 0 05/27/2025 Generated for Andrés bueno/Rober/eTransmitting on: 1 02:12 PM EDT History and Physical Notes * HPI (History of Present Illness) Category Sub-Category Detail Notes Category Not es Endocrinology Hypothyroidism Pt here to f/u Cardiology Blood Pressure Elevated Pt here for check up on hypertension. Pt states he is doing well and does not have any concerns Hyperlipidemia Pt is fasting today Examination Category Sub-Category Detail Notes Category Not es Psychology Heart: RSR Lungs: clear to auscultatio n General Appearance: NAD Grooming : adequate Eye contact : normal Mood : pleasant
[2025-07-31 14:09] VITALS: BP 137/77; PULSE 79; RESP 20; TEMP 36.5; O2SAT 100; BMI 23.6
--- OUTSIDE RECORDS SUMMARY | 2025-07-31 14:12 | XMS_ITS | Data Portability ---
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 [email or web address] Not available 04/18/2022 08:07:07 04/26/2022 04/26/2022 MLF 1) Median nerve compression/irri tation proximal and distal with some IR along the GH joint 2) Moderate incision site sensitivity along the median nerve distributions 3) Deficits with scapular stabilization (+) distal nerve symptoms. [email or web address] Not available 04/26/2022 07:51:41 05/01/2022 05/01/2022 MLF 1) Median nerve compression/irri tation proximal and distal with some IR along the GH joint 2) Moderate incision site sensitivity along the median nerve distributions 3) Deficits with scapular stabilization (+) distal nerve symptoms. [email or web address] Not available 05/01/2022 07:52:52 05/03/2022 05/03/2022 MLF 1) Median nerve compression/irri tation proximal and distal with some IR along the GH joint, improving with active therapy. 2) Resolving incision site sensitivity along the median nerve distributions 3) Deficits with scapular stabilization (+) distal nerve symptoms. [email or web address] Not available 05/03/2022 11:57:42 05/09/2022 05/09/2022 Continuing therapy for thoracic outlet compression syndrome [email or web address] Not available 05/09/2022 13:07:28 Plan of Treatment Reminders Order Date Submit Date Provider Last Modified By Organization Details Last Modified Time Details Appointments None record ed. Lab None record ed. Referral None record ed. Procedures None record ed. Surgeries None record ed. Imaging None record ed. Medication Orders None record ed. Patient TargetsNo targets recorded. Patient Instructions Encounter Date Encounter Id Patient Instructions Last Modified By Organization Details Last Modified Time 04/18/2022 [id number] CARPAL TUNNEL SYNDROME-LC [email or web address] Not available 04/18/2022 11:07:32 STG 1) Improving functional AROM to within 80-90% of the unaffected within an appropriate time-frame from the injury/surgery to improve ADL function with fine and gross motor dexterity. 2) Obtain intrinsic length with a PDC of < 1cm and within 80-90% of the unaffected in 3-4 weeks 3) To achieve 80-90% of functional bulb packer and pinch strength in order to maintain normal ADL function and/or engage in personally meaningful occupations that are rewarding to the client. 4) Client will improve overall function at home and work and demonstrate this through the QuickDASH assessment when/if appropriate time frames are determined. Rehab potential is Good Plan of Care (POC: 1-2x/week for 4-6 weeks. [email or web address] Not available 04/18/2022 08:07:07 04/26/2022 [id number] CARPAL TUNNEL SYNDROME-LC [email or web address] Not available 04/26/2022 09:57:39 STG 1) Improving functional AROM to within 80-90% of the unaffected within an appropriate time-frame from the injury/surgery to improve ADL function with fine and gross motor dexterity. 2) Obtain intrinsic length with a PDC of < 1cm and within 80-90% of the unaffected in 3-4 weeks 3) To achieve 80-90% of functional bulb packer and pinch strength in order to maintain normal ADL function and/or engage in personally meaningful occupations that are rewarding to the client. 4) Client will improve overall function at home and work and demonstrate this through the QuickDASH assessment when/if appropriate time frames are determined. Rehab potential is Good Plan of Care (POC: 1-2x/week for 4-6 weeks. [email or web address] Not available 04/26/2022 07:51:41 05/01/2022 [id number] CARPAL TUNNEL SYNDROME-LC Not available 05/01/2022 11:48:53 STG 1) Improving functional AROM to within 80-90% of the unaffected within an appropriate time-frame from the injury/surgery to improve ADL function with fine and gross motor dexterity. 2) Obtain intrinsic length with a PDC of < 1cm and within 80-90% of the unaffected in 3-4 weeks 3) To achieve 80-90% of functional bulb packer and pinch strength in order to maintain normal ADL function and/or engage in personally meaningful occupations that are rewarding to the client. 4) Client will improve overall function at home and work and demonstrate this through the QuickDASH assessment when/if appropriate time frames are determined. Rehab potential is Good Plan of Care (POC: 1-2x/week for 4-6 weeks. [email or web address] Not available 05/01/2022 07:52:52 05/03/2022 [id number] CARPAL TUNNEL SYNDROME-LC Not available 05/03/2022 11:57:53 STG 1) Improving functional AROM to within 80-90% of the unaffected within an appropriate time-frame from the injury/surgery to improve ADL function with fine and gross motor dexterity. 2) Obtain intrinsic length with a PDC of < 1cm and within 80-90% of the unaffected in 3-4 weeks 3) To achieve 80-90% of functional bulb packer and pinch strength in order to maintain normal ADL function and/or engage in personally meaningful occupations that are rewarding to the client. 4) Client will improve overall function at home and work and demonstrate this through the QuickDASH assessment when/if appropriate time frames are determined. Rehab potential is Good Plan of Care (POC: 1-2x/week for 4-6 weeks. [email or web address] Not available 05/03/2022 09:07:10 Reason for Referral None Reported. Problems No Known Problems Procedures Surgical History Date Name Laterality Status Provider Name and Address Organization Details Recorded Time 2 OT Therapeutic Exercise completed ZEE ROSENBERG/L, CHT [address] [place], [address], [facility] 05/03/2022 11:47:18 2 OT Manual Therapy completed MISBAH K HUGO, OTR/L, CHT [address] [place], [address], [facility] 05/03/2022 09:07:10 2 PT Paraffin Bath completed MISBAH ARIAS, OTR/L, CHT [address] [place], [address], [facility] 05/03/2022 09:07:10 2 OT Therapeutic Exercise completed MISBAH ARIAS, OTR/L, CHT [address] [place], [address], [facility] 05/01/2022 07:52:52 2 OT Manual Therapy completed MISBAH ARIAS, OTR/L, CHT [address] [place], [address], [facility] 05/01/2022 07:52:52 2 PT Paraffin Bath completed MISBAH ARIAS, OTR/L, CHT [address] [place], [address], [facility] 05/01/2022 07:52:52 2 OT Therapeutic Exercise completed MISBAH ARIAS, OTR/L, CHT [address] [place], [address], [facility] 04/26/2022 09:57:18 2 OT Manual Therapy completed MISBAH ARIAS, OTR/L, CHT [address] [place], [address], [facility] 04/26/2022 07:51:41 2 PT Paraffin Bath completed MISBAH ARIAS, OTR/L, CHT [address] [place], [address], [facility] 04/26/2022 07:51:41 2 OT Therapeutic Exercise completed MISBAH ARIAS, OTR/L, CHT [address] [place], [address], [facility] 04/18/2022 11:01:44 2 OT Manual Therapy completed MISBAH ARIAS OTR/L, CHT [address] [place], [address], [facility] 04/18/2022 08:07:07 2 PT Paraffin Bath completed MISBAH ARIAS OTR/L, CHT [address] [place], [address], [facility] 04/18/2022 10:07:30 2 OT Therapeutic Exercise completed MISBAH ARIAS, OTR/L, CHT [address] [place], [address], [facility] 04/11/2022 09:00:50 2 OT Manual Therapy completed MISBAH ARIAS OTR/L, CHT [address] [place], [address], [facility] 04/11/2022 09:01:09 2 OT Evaluation - Moderate complexity completed MISBAH ARIAS OTR/L, CHT [address] [place], [address], [facility] 04/02/2022 13:02:32 2 OT Therapeutic Exercise completed MISBAH ARIAS OTR/L, CHT [address] [place], [address], [facility] 04/02/2022 14:21:58 2 PT Hot/Cold Pack completed MISBAH ARIAS OTR/L, CHT [address] [place], [address], [facility] 04/02/2022 13:45:32 Imaging Results None recorded. Procedure Notes None recorded. Medical Equipment None Reported. Allergies No known drug allergies Medications Name Sig Start Date Stop Date Status Note LastModified by Organization Details LastModified Time promethazin e-DM 6.25 mg-15 mg/5 mL oral syrup TAKE 5 ML BY MOUTH EVERY 6 HOURS NEEDED FOR COUGH 03/21 completed Not Available Not Available Not Available tramadol 50 mg tablet TAKE 1 TABL PO Q 4-6 HRS PRN FOR SEVERE POST SURGICAL PAIN 04/11 completed Not Available Not Available Not Available meloxicam 7.5 mg tablet TAKE 1 TABLE PO QD WITH FOOD REGARDLES S OF PAIN LEVEL FOR 1 WEEK. THEN TAKE 1 TABLET PO QD ONLY PRN FOR PAIN RELIEF THEREAFTE R 04/11 completed Not Available Not Available Not Available gabapentin 100 mg capsule TAKE 1 CAPSULE PO QHS FOR 1 WEEK active Not Available Not Available No t Available ibuprofen 600 mg tablet TAKE 1 TABLET BY MOUTH EVERY 6 HOURS NEEDED FOR MILD PAIN 03/21 completed Not Available Not Available Not Available methylpredn isolone 4 mg tablets in a dose pack TAKE BY MOUTH DIRECTED ON INSIDE OF PACKAGE 03/21 completed Not Available Not Available Not Available albuterol sulfate HFA 90 mcg/actuati on aerosol inhaler INHALE 2 PUFFS BY MOUTH EVERY 6 HOURS NEEDED FOR SHORTNESS OF BREATH 03/21 completed Not Available Not Available Not Available gabapentin as needed 03/21 completed Not Available Not Available Not Available Vitals Date Recorded Body height Body mass index (BMI) Body weight Provider Name and Address Organization Details Last Updated DateTime 05/09/2022 175.26 cm 22.2 kg/m2 92284.86 g Josiah Mikal [facility] 05/09/2022 12:49:48 Social History Question Answer Notes LastModified by Organizat ion Details LastModified Time Tobacco Smoking Status [email or web address] 13:01:10 How Many Years Have You Smoked Tobacco? 20 [email or web address] Information not available 03/21/2022 Sex: Unknown Functional Status None recorded. Mental Status None recorded. Family History Nothing Reported. Medical History Condition Response Kidney Stones N Blood Clot N Blood Thinners N Liver Disease N Kidney Disease N Heart Conditions N Heart Attack (NE) N Diabetes N Bleeding Disorder N Past Encounters Encounter ID Performer Location Encounter Start Date Encounter Closed Date Diagnosis/Indication Diagnosis SNOMED-CT Code Diagnosis ICD10 Code Diagnosis IMO Codes Diagnosis Note [id number] MAT SCHMIDT MD [facility] [address] [address] 03/21/2022 12:47:03 03/21/2022 13:18:50 Bilateral carpal tunnel syndrome 6016117610 [id number] G56.03 With atypical tingling in the long ring and small finger with no electrodia gnostic findings. This is often a sign of thoracic outlet compressio n, recommend carpal tunnel release because I believe it will have the biggest effect of his nocturnal paresthesi as and intermitte nt symptoms, followed by evaluation and treatment and therapy for thoracic outlet compressio n syndrome, he has a history of cervical spine fusion as well. Risks and benefits of the surgery were discussed including transient worsening of symptoms, possible failure to relieve symptoms, possible nerve injury, possible infection, possible stiffness, and no guarantees . I discussed soreness in the palm of the hand and swelling in the wrist which may last for several months after surgery. [id number] MAT SCHMIDT MD SURGERY SCHEDULE [address] [place] [address] 03/29/2022 06:18:08 03/29/2022 06:19:32 [id number] MISBAH ARIAS OTR/L, CHT PHYSICAL THERAPY / HAND THERAPY [facility] [address] [place] [address] 04/02/2022 13:19:00 04/02/2022 14:58:04 Bilateral carpal tunnel syndrome [id number] G56.03 [id number] ZEE ROSENBERG/L, CHT PHYSICAL THERAPY / HAND THERAPY [facility] [address] [place] [address] 04/11/2022 08:08:46 04/16/2022 09:24:35 Bilateral carpal tunnel syndrome [id number] G56.03 [id number] CHANTALE VALDEZ PA-C [facility]TH[facility]EDI [facility] [address] [address] 04/11/2022 08:55:33 04/11/2022 09:21:07 Bilateral carpal tunnel syndrome [id number] G56.03 Doing well status post simultaneo us bilateral carpal tunnel syndrome [id number] MISBAH ARIAS OTR/L, CHT PHYSICAL THERAPY / HAND THERAPY [facility] [address] [place] [address] 04/18/2022 09:45:16 04/18/2022 13:22:56 Bilateral carpal tunnel syndrome [id number] G56.03 [id number] MISBAH ARIAS, OTR/L, CHT PHYSICAL THERAPY / HAND THERAPY [facility] [address] [place] [address] 04/26/2022 08:28:08 04/26/2022 13:46:31 Bilateral carpal tunnel syndrome [id number] G56.03 [id number] MISBAH ARIAS, OTR/L, CHT PHYSICAL THERAPY / HAND TH[facility]APY [facility] [address] [place] [address] 05/01/2022 10:53:11 05/01/2022 14:51:01 Bilateral carpal tunnel syndrome [id number] G56.03 [id number] MISBAH ARIAS, OTR/L, CHT PHYSICAL THERAPY / HAND THERAPY [facility] [address] [place] [address] 05/03/2022 10:38:25 05/03/2022 13:20:04 Bilateral carpal tunnel syndrome [id number] G56.03 [id number] MAT SCHMIDT MD [facility] [address] [place] [address] 05/09/2022 12:27:11 05/09/2022 13:07:47 Bilateral carpal tunnel syndrome [id number] G56.03 Doing well status post simultaneo us bilateral carpal tunnel syndrome, recommend return to full use no restrictio ns follow-up as needed. Return scheduled for 05/14 Health Concerns Section Related Observation LastModified by Organization Detai ls LastModified Time None Recorded Concern Status LastModified by Organization Details LastModified Time None Recorded Advance Directives Directive None Recorded Payers Insurance Date Sequence Insurance Name Policy Number Policy Carlton Covered Member ID Carlton Member ID Guarantor Name 05/06/2022 1 [place] [id number] Yair Chapa [id number] Yair Chapa Notes Date Note Type Note Provider Name and Address Organization Details Recorded Time 2 text/html Patient History: Pt reports that he is doing well today. Pain (0-10): Some pain along the incision site. Pain in last 24 hours (0-10: How often symptoms experienced Constantly (76-100%), Frequently (51-75%), Occasionally (26-50%), Intermittently (0-25%): Intermittent DOI: N/T for approximately a year. DOS: 03-29-2022 Performance Deficits: Pt reports having at least 3 performance deficits that are limiting ADL and IADL functional secondary to having hand/arm surgery/injury. ZEE ROSENBERG/Zeus, [address], [address], [facility] 04/18/2022 11:07:35 2 text/html Patient History: Pt reports that he is continuing to make good progress with active therapt, Pain (0-10): Some pain along the incision site. Pain in last 24 hours (0-10: How often symptoms experienced Constantly (76-100%), Frequently (51-75%), Occasionally (26-50%), Intermittently (0-25%): Intermittent DOI: N/T for approximately a year. DOS: 03-29-2022 Performance Deficits: Pt reports having at least 3 performance deficits that are limiting ADL and IADL functional secondary to having hand/arm surgery/injury. LAMONT ROSENBERG, [address], [address], [facility] 04/26/2022 09:57:42 2 text/html Patient History: Pt reports that he still is experiencing some pillar pain. Patient reports that his strength is improving significantly. Pain (0-10): Some pain along the incision site. Pain in last 24 hours (0-10: How often symptoms experienced Constantly (76-100%), Frequently (51-75%), Occasionally (26-50%), Intermittently (0-25%): Intermittent DOI: N/T for approximately a year. DOS: 03-29-2022 Performance Deficits: Pt reports having at least 3 performance deficits that are limiting ADL and IADL functional secondary to having hand/arm surgery/injury. LAMONT ROSENBERG, [address], [address], [facility] 05/01/2022 11:48:56 2 text/html Patient History: Pt reports that he is making good progress with proximal stabilization and distal hand strengthening. Pain (0-10): Some pain along the incision site. Pain in last 24 hours (0-10: How often symptoms experienced Constantly (76-100%), Frequently (51-75%), Occasionally (26-50%), Intermittently (0-25%): Intermittent DOI: N/T for approximately a year. DOS: 03-29-2022 Performance Deficits: Pt reports having at least 3 performance deficits that are limiting ADL and IADL functional secondary to having hand/arm surgery/injury. MISBHA ARIAS, OTR/L, CHT [address] [place] [address], [address], [facility] 05/03/2022 11:57:57 2 text/html POST OP GLOBAL VISIT DATE OF SURGERY: 03-29-2022 TIME POST SURGERY:6 WKS SURGERY: Left carpal tunnel releaseRight carpal tunnel release INTERVAL HISTORY: PREOP SYMPTOMSBETTER PAIN LEVEL (VAS)1/10 OVERALL ASSESSMENTIMPROVING NEW SYMPTOMS OR QUESTIONS:- Reports minor tightness and tenderness in sushant hands OTHER RECENT SURGERIES: EMPLOYMENT STATUS: MAT SCHMIDT MD [facility] [place], [address], [facility] 05/09/2022 13:07:48
--- OUTSIDE RECORDS SUMMARY | 2025-07-31 14:12 | XMS_ITS | Patient Health Record ---
Author Organization [facility] Address [address] [place] [id number] Care Team Providers Care Hander In Name Role Phone Bhargav Soni Primary Care [...] [phone] Performing Lab: Notes/Report: Test performed by [facility] [address] [place] [address] , [address], [place] [address] Blas Dinh MD, Pigeon Fancier CLIA: [id number] Sodium 140 135-145 mmol/L Potassium 4.4 3.5-5.3 [...] 0.5 <0.2-1.2 mg/dL A/G Ratio 2.0 1.1-2.5 P-TSH reflex to FT4 Reviewed date:05/28/2025 11:11:10 AM Interpretation:Normal Performing Lab: Notes/Report: Test performed by [facility] [address] [place] [address] , [place] [address] Blas Dinh MD, Pigeon Fancier CLIA: [id number] TSH reflex to FT4 1.22 0.43-5.25 mU/L P-Lipid Panel Reviewed date:05/28/2025 11:11:10 AM Interpretation:Normal Performing Lab: Notes/Report: Test performed by [facility] [address] [place] [address] , [address], [place] [address] Blas Dinh MD, Pigeon Fancier CLIA: [id number] Cholesterol 198 <200 mg/dL Triglycerides 87 <150 [...] Results: 90 Units: mg/dL % Change: +2% P-Microalbumin/Creatinine, R andom Urine Sample Reviewed date:05/28/2025 11:11:10 AM Interpretation:a/c 48 Performing Lab: Notes/Report: Test performed by [facility] [address] [place] [address] , [address], [place] [address] Blas Dinh MD, Pigeon Fancier CLIA: [id number] Albumin/Creatinine Ratio, Urine 48 0-30 ug/mg Microalbumin, Urine, Random 15.4 Creatinine, Urine 323.1 Cologuard Reviewed date:01/05/2025 10:58:03 AM Interpretation:Negative Performing Lab: Notes/Report: Negative Cologuard Negative Medications Medication SIG (Take, Route, Frequency, Duration) Notes Start Date End Date Status Rosuvastatin Calcium 20 MG 1 tablet Oral ly Once a day; Duration: 90 days Active Losartan Potassium 50 MG 1 tablet Orally Once a day; Duration: 90 days Active Fluticasone Propionate 50 MCG/ACT 1 spray in each nostril Nasally Once a day 01/06/2024 Active Sertraline HCl 100 MG 1 tablet Orally On ce a day; Duration: 90 days 05/27/2025 Active Loratadine 10 MG 1 tablet Orally Once a day; Duration: 30 days Active Aspirin 81 MG 1 tablet Orally Once a day Active Problems Problem Type SNOMED Code ICD Code Onset Dates Problem Status W/U Status Risk Notes Problem Gastroesophageal reflux disease (disorder) (647753390) GERD [Gastroesophageal reflux disease] (530.81) Active confirmed Problem displacement of cervical intervertebral disc (disorder) (311862708) CERVICAL DISC DISPLACMNT (722.0) Active confirmed Problem Mixed anxiety and depressive disorder (063224513) Depression with anxiety (300.4) Active confirmed Problem Essential hypertension (49025902) Essential hypertension (I10) Active confirmed Problem Paresthesia (44645901) Paresthesia (R20.2) Active confirmed Problem Duodenal ulcer (84586767) Duodenal ulcer (K26.9) Active confirmed Problem Mixed anxiety and depressive disorder (795946478) Depression with anxiety (F41.8) Active confirmed Problem Gastroesophageal reflux disease (709891770) GERD without esophagitis (K21.9) Active confirmed Problem Neck pain (39412092) Neck pain (M54.2) Active c onfirmed Problem Gastroesophageal reflux disease (802662356) Gastroesophageal reflux disease, esophagitis presence not specified (K21.9) Active confirmed Problem Current smoker (17984158) Current smoker (F17.200) Active confirmed Problem Cellulitis of left ankle (57810488149512980) Cellulitis of left ankle (L03.116) Active confirmed Problem History of musculoskeletal disease (072483828) History of herniated intervertebral disc (Z87.39) Active confirmed Problem Skin sensation disturbance (81480436) Numbness and tingling in both hands (R20.2) Active confirmed Problem Pure hypercholesterolemia (557042982) Pure hypercholesterolemia (E78.00) Active confirmed Problem Carpal tunnel syndrome (77571835) Carpal tunnel syndrome on both sides (G56.03) Active confirmed Problem Allergic rhinitis (40320228) Allergic rhinitis, unspecified seasonality, unspecified trigger (J30.9) Active confirmed Vital Signs Heart Rate 86 /min 05/27/2025 Blood pressure diastolic 80 mm Hg 05/27/2025 Height 69 in 05/27/2025 Blood pressure systolic 130 mm Hg 05/27/2025 Weight 166.2 lbs 05/27/2025 BMI 24.54 kg/m2 05/27/2025 Encounters Encounter Location Date Provider Diagnosis [facility] [facility] [address] [place] [id number] 11/12/2024 Bhargav Montgomery Transient neurologic al symptoms R29.818 and Nonintractable headache, unspecified chronicity pattern, unspecified headache type R51.9 [facility] [facility] [address] [place] [id number] 05/27/2025 Bhargav Montgomery Essential hypertensi on I10 ; Pure hypercholesterolemia E78.00 ; Depression with anxiety F41.8 ; GERD without esophagitis K21.9 ; half-way use of drug Z79.899 and BMI 24.0-24.9, adult Z68.24 [facility] [facility] [address] [place] [id number] 10/07/2024 Bhargav Montgomery [facility] [address] [place], [place] [id number] 04/14/2025 Bhargav Montgomery [facility] [address] [place] [id number] 05/28/2025 Bhargav Montgomery Assessments Encounter Date Diagnosis (ICD Code) Assessment Notes Treatment Notes Treatment Clinical Notes Section Notes 11/12/2024 Transient neurologic al symptoms (ICD-10 - R29.818) ER notes, labs and radiology reports reviewed in office today. 11/12/2024 Nonintractable heada luciana, unspecified chronicity pattern, unspecified headache type (ICD-10 - R51.9) 05/27/2025 Essential hypertensi on (ICD-10 - I10) 05/27/2025 Pure hypercholesterolemia (ICD-10 - E78.00) 05/27/2025 Depression with anxi ety (ICD-10 - F41.8) 05/27/2025 GERD without esophag itis (ICD-10 - K21.9) 05/27/2025 half-way use of marlo g (ICD-10 - Z79.899) 05/27/2025 BMI 24.0-24.9, adult (ICD-10 - Z68.24) Plan Of Treatment No Information Insurance Providers Payer Name Payer Address Payer Phone Subscriber Number Group Number Insured Name Patient Relationship to Insured Coverage Start Date Coverage End Date [employer] [facility] [address] [place] [address] [id number] Yair Huddleston Self - patient is the insured Medications Administered Medication Instructions Date of Administration Dosage Notes Dexamethasone 05/04/2014 1 mL Medical (General) History Medical History History ICD Code Anxiety disorder OCD Esophageal reflux hypertension C5-C6 disc herniation 2013 hyperlipidemia Surgical History Surgery Date(Month/Year) Discectomy, C5-C6 11/2013 Cervical Fusion, C5-C6 11/2013 Hospitalization History Reason Date(Month/Year) LT Foot Cellulitis- [facility] ER 01/22/2016 Possible Herniates Disc- [facility] ER 2013 Anxiety- [facility] 2005
--- OUTSIDE RECORDS SUMMARY | 2025-07-31 14:12 | XMS_ITS | Encounter Summary ---
Author Organization [facility] Address [address] [place] [address] Care Team Providers Care Technical Associate Name Role Phone Bhargav Soni MD Primary Care Provider + [phone] Encounter Details Date Type Department Care Team (Late st Contact Info) Description 11/23/2013 Conversion Encounter [facility] HISTORICAL CONV [address] [place] [address] Interface, See Report Social History Tobacco Use Types Packs/Day Years Used Date Smoking Tobacco: Never Assessed Sex and Gender Information Value Date Recorded Sex Assigned at Not on file Legal Sex Male 1:38 PM EDT Gender Identity Not on file Sexual Orientation Not on file documented as of this encounter OR Notes * Op Note - Interface, See Report - 11/23/2013 8:34 AM EST [place] [address] OPERATIVE REPORT PATIENT NAME: RASHAWN ORTIZ [address] [facility] NO: [id number] DATE OF : 1975 DATE OF OPERATION: 11/23/2013 ADMITTING PHYSICIAN: Philipp Sánchez M.D. PREOPERATIVE DIAGNOSIS: C5-C6 disc herniation. POSTOPERATIVE DIAGNOSIS: Same. PROCEDURES PERFORMED: 1. Arthrodesis at C5-C6. 2. Anterior cervical discectomy with microdissection at C5-C6. 3. Iron Horse Elite plating at C5-C6. 4. Composite allografting at C5-C6. SURGEON: Philipp Sánchez M.D. PAPER CONE GRADER: Wilver López PA-C. ANESTHESIA: General endotracheal. BLOOD LOSS: Minimal. SPECIMEN: Disc to pathology. COMPLICATIONS: None. CLINICAL NOTE: The patient is a 38-year-old gentleman with a protracted history of neck and right upper extremity pain. He has a broad-based bilobed disc herniation at C5-C6 with components bilaterally. There is not only nerve root compromise but some crowding of the spinal cord. As such, he presents at this time for anterior cervical discectomy with allografting and plating. The nature of the procedure as well as the potential risks, complications and limitations have been well outlined to the patient and he has agreed to proceed with surgery. TECHNICAL NOTE: The patient was brought to the operating room and placed on the operating table in the supine position. General endotracheal anesthesia was achieved. His neck was mildly extended with a roll placed transversely under his shoulders. His anterior neck was prepared and draped in the usual fashion. A linear just slightly curved incision was fashioned from the midline leftward at approximately the level of the cricothyroid membrane. The underlying subcutaneous tissues were undermined. The platysma was divided longitudinally. A plane medial to the belly of the sternocleidomastoid muscle was pursued to provide exposure to the anterior spine. The disc space was marked. A localizing radiograph confirmed this to be the C5-C6 disc level. The longus colli muscle was mobilized with cautery to the anterior spine. The disc was incised with scalpel and evacuated piecemeal with an array of pituitary rongeurs, Arabella curettes and Kerrison punches. Distraction screws were utilized to provide additional working room. After subtotal discectomy, the operating microscope was brought into use. More disc including fragments of disc extending bilaterally were removed. The posterior longitudinal ligament was taken down with Arabella knife and Arabella curettes. The neural foramina were decompressed. At completion of the procedure, a blunt microball probe could easily be passed into the neural foramina. The dural sac itself was decompressed. Endplates were decorticated. A small ledge of bone was left posteriorly on each endplate. An 8 mm lordotic composite allograft was then impacted into place. Anterior osteophytes were resected with the high speed drill. A 23 mm Iron Horse Elite plate was then affixed to the anterior spine using 13 mm variable angle screws bilaterally at C5 and C6. Locking cams were engaged x2. Fluoroscopy revealed good position of the construct at the C5-C6 level. Some modest bleeders along the entry site were coagulated with bipolar cautery. The wound was irrigated and noted to be quite dry. The platysma was then reapproximated in interrupted fashion with 3-0 Vicryl suture. The skin was closed in a running subcuticular fashion with 3-0 Vicryl suture. Sure+Close was applied. There were no overt intraoperative complications. The patient did receive preoperative antibiotics Philipp Sánchez M.D.* SK/rxcbp Voice Rec. ID #[id number] Original Voice Rec. ID #[id number] Doc ID #[id number] Revision Count: 0 cc: Philipp Sánchez M.D.* <start header> [place] [address] OPERATIVE REPORT PATIENT NAME: RASHAWN ORTIZ2 3 [facility] NO: [id number] DATE OF : 1975 <end header> DO NOT TEXT EDIT THIS LINE :PARISH VISITOR:[id number]: Authenticated by PHILIPP SÁNCHEZ M.D. On 11/24/2013 06:45:27 AM documented in this encounter Plan of Treatment Not on file documented as of this encounter Procedures Procedure Name Priority Date/Time Associated Diagnosis Comments FL > 1 HOUR Routine 11/23/2013 2:22 PM EST FL > 1 HOUR Routine 11/23/2013 11:16 AM EST CONVERTED (HISTORICAL) SURGICAL PATHOLOGY Routine 11/23/2013 8:34 AM EST CBC (NO DIFF) Routine 11/22/2013 11:20 AM EST BASIC METABOLIC PANEL Routine 11/22/2013 11:20 AM EST MRSA DNA PROBE Routine 11/22/2013 11:17 AM EST documented in this encounter Results * FL GREATER THAN 1 HOUR (11/23/2013 2:22 PM EST) Anatomical Region Laterality Modality N/A Radiographic Court ging 11/23/2013 2:22 PM EST Narrative 11/23/2013 3:34 PM EST FLUOROSCOPY GREATER THAN ON HOUR ON 11/23/2013 INDICATION: anterior fusion FINDINGS: 2 minutes and 13 seconds of fluoroscopy used for anterior localization with first image revealing radiopaque marker anteriorly at the T5-T6 level. Second image reveals anterior fusion of the C5-C6 level. No hardware complication or malalignment. IMPRESSION- Status post localization and anterior fusion of C5 and C6. Sequins WinderLeah Travis Radiologist- EVANGELINA NERI Releasing Radiologist- EVANGELINA NERI Released Date Time11/23/13 1754 Procedure Note Evangelina Green MD - 07/13/2015 FLUOROSCOPY GREATER THAN ON HOUR ON 11/23/2013 INDICATION: anterior fusion FINDINGS: 2 minutes and 13 seconds of fluoroscopy used for anterior localization with first image revealing radiopaque marker anteriorly at the T5-T6 level. Second image reveals anterior fusion of the C5-C6 level. No hardware complication or malalignment. IMPRESSION- Status post localization and anterior fusion of C5 and C6. Sequins Winderalejandra Travis Radiologist- EVANGELINA NERI Releasing Radiologist- EVANGELINA NERI Released Date Time- 11/23/13 1754 us Philipp Sánchez MD IMG FLUOROSCOPY ORDERABLES Fi nal Result * FL GREATER THAN 1 HOUR (11/23/2013 11:16 AM EST) Anatomical Region Laterality Modality N/A Radiographic Court ging 11/23/2013 11:1 6 AM EST Narrative 11/23/2013 3:34 PM EST FLUOROSCOPY GREATER THAN ON HOUR ON 11/23/2013 INDICATION: anterior fusion FINDINGS: 2 minutes and 13 seconds of fluoroscopy used for anterior localization with first image revealing radiopaque marker anteriorly at the T5-T6 level. Second image reveals anterior fusion of the C5-C6 level. No hardware complication or malalignment. IMPRESSION- Status post localization and anterior fusion of C5 and C6. Darek Travis RadiologistLeah NERI Releasing Caleb NERI Released Date Time- 11/23/13 1754 Procedure Note Evangelina Green MD - 07/13/2015 FLUOROSCOPY GREATER THAN ON HOUR ON 11/23/2013 INDICATION: anterior fusion FINDINGS: 2 minutes and 13 seconds of fluoroscopy used for anterior localization with first image revealing radiopaque marker anteriorly at the T5-T6 level. Second image reveals anterior fusion of the C5-C6 level. No hardware complication or malalignment. IMPRESSION- Status post localization and anterior fusion of C5 and C6. Darek NERI Releasing Caleb NERI Released Date Time- 11/23/13 1754 Philipp Sánchez MD IMG FLUOROSCOPY ORDERABLES Fi nal Result * Converted Surgical Pathology (11/23/2013 8:34 AM EST) 11/23/2013 8:34 AM EST Narrative [facility] - 11/24/2013 11:54 AM EST [facility] [address] [place] [address] SURGICAL PATHOLOGY REPORT Patient Name: RASHAWN ORTIZ MR#: [id number] : 1975 Gender: M Ordering Physician: PHILIPP SÁNCHEZ Copy To: Location: [address] [place] [address] Collected: 11/23/2013 Received: 11/23/2013 Reported: 11/24/2013 Clinical Diagnosis and History The working history is herniation right C5-C6. Final Diagnosis Intervertebral disc right C5-C6: Fibrocartilage from intervertebral disc. JFJ/rw Amendments: Electronically Signed Out By Jeff Dupree M.D. Specimen(s) Received: Intervertebral disc Gross Description Received in formalin labeled disc (right C5-C6) is a 3.0 x 3.0 x 0.5cm aggregate of booker fibrocartilaginous soft tissue fragments submitted in toto in one cassette. HBM/rw Microscopic Description Sections of the intervertebral disc material demonstrate fibrocartilage without inflammation or neoplasia. JFJ/rw Procedures/Addenda us See Report Interface PATHOLOGY/CYTOLOGY ORDERABL ES Final Result [facility] [address] [place] [address], * (ABNORMAL) Basic metabolic panel (11/22/2013 11:20 AM EST) Glucose 100 70 - 100 mg/dL [facility] BUN 15 6 - 20 mg/dL [facility] Creatinine 0.8 0.6 - 1.3 mg/dL [facility] Sodium 140 136 - 145 mmol/L [facility] Potassium 4.4 3.4 - 5.4 mmol/L [facility] Chloride 108(H) 98 - 107 mmol/L [facility] CO2 26 20 - 31 mmol/L [facility] Calcium 9.2 8.7 - 10.4 mg/dL [facility] eGFR 116 ml/min/1.7 32 [facility] Comment: DF by IF @ 11/22/2013 11:55 National [employer] Guidelines Stage Description GFR 1 Normal or High 90+ 2 Mild decrease 60-89 3 Moderate decrease 30-59 4 Severe decrease 15-29 5 Kidney failure <15 Anion Gap 7 3 - 11 mmol/L [facility] Blood specimen (specimen) 11/22/2013 11:20 AM EST Narrative [facility] - 11/22/2013 11:55 AM EST Specimen Type: Blood Philipp Sánchez MD LAB BLOOD ORDERABLES Final Re sult [facility] [address] [place] [address], * CBC (No diff) (11/22/2013 11:20 AM EST) WBC 10.27 3.50 - 10.80 [facility] RBC 5.07 4.20 - 5.76 /[facility] Hemoglobin 15.6 13.1 - 17.5 g/dL [facility] Hematocrit 45.0 38.9 - 50.9 % [facility] MCV 88.8 80.0 - 99.0 fL [facility] MCH 30.8 27.0 - 31.0 pg [facility] MCHC 34.7 32.0 - 36.0 g/dL [facility] RDW-CV 13.1 11.3 - 14.5 % [facility] Platelets 298 150 - 450 [facility] Blood specimen (specimen) 11/22/2013 11:20 AM EST [facility] - 11/22/2013 11:35 AM EST Specimen Type: Blood Philipp Sánchez MD LAB BLOOD ORDERABLES Final Re sult [facility] [address] [place] [address], * MRSA DNA Probe (11/22/2013 11:17 AM EST) MRSA, PCR Negative Negative [facility] Comment: DF by [id number] @ 11/22/2013 13:21 MRSA Negative Swab (specimen) 11/22/2013 1 1:17 AM EST [facility] - 11/22/2013 1:21 PM EST Specimen Type: Nares Philipp Sánchez MD MICROBIOLOGY - GENERAL ORDERA BLES Final Result Performing Organization Address [facility] [place] [address], documented in this encounter Visit Diagnoses Not on filedocumented in this encounter Care Teams Technical Associate Relationship Specialty Start Date End Date Bhargav Soni MD [address] [place] [address] [address] [place] [address] PCP - General Family Medicine 09/01/20 documented as of this encounter
--- OUTSIDE RECORDS SUMMARY | 2025-07-31 14:13 | XMS_ITS | Clinical Summary ---
[facility] Organization [facility] Address [address] [place] [address] Care Team Providers Care Gantry Rigger Name Role Phone Bhargav Soni MD Primary Care Provider + [phone] Social History Tobacco Use Types Packs/Day Years Used Date Smoking Tobacco: Never Assessed Abuse Screen Answer Date Recorded Unsafe at Home or Work/School Not on file Feels Threatened by Someone? Not on file 07/2023 Does Anyone Keep You from Co ntacting Others or Doint Things Outside the Home? Not on file 07/30/2023 Physical Sign of Abuse Present Not on file 1 Housing Stability Answer Date Recorded Current Living Arrangements Not on file 07/21 Potentially Unsafe Housing Conditions Not on shari e 07/30/2023 Family and Community Support Answer Moisés e Recorded Help with Day-to-Day Activities Not on file 07/30/2023 Lonely or Isolated Not on file 07/30/2023 Employment Answer Date Recorded Do you want help finding or keeping work or a natali b? Not on file 07/30/2023 Disabilities Answer Date Recorded Concentrating, Remembering, or Making Decisions Difficulty Not on file 07/30/2023 Doing Errands Independently Difficulty Not on fi le 07/30/2023 Education Answer Date Recorded Help with school or training? Not on file Preferred Language Not on file 07/30/2023 Sex and Gender Information Value Date Recorded Sex Assigned at Not on file Legal Sex Male 1:38 PM EDT Gender Identity Not on file Sexual Orientation Not on file Plan of Treatment Health Maintenance Due Date Last Done Comments TDAP/TD VACCINES (1 - Tdap) 1996 ANNUAL PHYSICAL 09/20/2020 HEPATITIS C SCREENING 09/20/2020 COLOGUARD 2022 COLON CANCER SCREENING 5 YEA R SIGMOIDOSCOPY 2022 COLONOSCOPY 2022 [address] CANCER SCREENING 2022 CT COLONOGRAPHY 2022 FECAL OCCULT BLOOD TEST 2022 FIT Testing (1 year) 2022 INFLUENZA VACCINE 05/21/2025 Pneumococcal Vaccine 0-49 Aged Out No longer eligible based on patient's age to complete this topic Insurance [place]ID [place] Care Teams Gantry Rigger Relationship Specialty Start Date End Date Bhargav Soni MD [address] [place] [facility] [address] [place] [address] PCP - General Family Medicine 09/01/20
--- NOTE | 2025-07-31 14:24 | ED_ITS ---
<Statement entered by Anna Marie Oconnell DO - 08/03/25 23:49> I was consulted by the OCTAVIO, and we discussed the complexity of problems being addressed. I approve the treatment and management plan for this patient's care in the emergency department, thus performing a substantial portion of the medical decision making. Anna Marie Oconnell DO Discharge Plan Disposition Patient Disposition: Home, Self-Care Prescriptions Prescriptions: New amoxicillin-pot clavulanate 875-125 mg tablet 1 tab PO BID Qty: 20 0RF ibuprofen 600 mg tablet 600 mg PO TID PRN (Reason: pain) 7 Days Qty: 21 0RF No Action gabapentin 300 mg capsule 300 mg PO DAILY promethazine-DM 120 ML syrup 5 ml PO Q6HP PRN (Reason: Cough) Qty: 240 0RF albuterol sulfate 8.5 GM HFA aerosol inhaler 2 puffs IH Q6HP PRN (Reason: Shortness Of Breath) 30 Days Qty: 1 5RF ibuprofen 600 MG tablet 600 mg PO Q6HP PRN (Reason: Mild Pain) Qty: 30 0RF aspirin 81 mg tablet,delayed release (DR/EC) 81 mg PO DAILY Qty: 30 1RF methocarbamol 750 mg tablet 1,500 mg PO TID 5 Days Qty: 30 0RF Referrals Follow up/Referrals: Bhargav Soni MD [Primary Care Provider, Medical] - See instructions Activity Restrictions/Add. Instructions Additional Instructions/Restrictions: Please follow-up with dentistry as soon as possible. Please take your antibiotics as directed. Return to the ED for any worsening of your condition. Clinical Impressions Clinical Impression: Pain, dental, Abscess, dental Instructions Patient Instructions: DI for Dental Pain Print Language Print Language: Kazakh Discharge ED Provider: Anna Marie Oconnell General Adult [facility] General Chief complaint: Dental/Oral Stated complaint: tooth pain Time Seen by Provider: 07/31/25 14:14 Mode of Arrival: Ambulatory Source of Information: Patient Description of Symptoms (Recalled from ER Triage Doc. by RN): patient rpesents for left sided dental pain. patient stated approximately one month ago that part of his left second molar broke off, and 2 weeks later, more of that same molar broke off. the patient states he has an appointment with his dentist this coming Saturday (08/03/25) to have it evaluated but it is keeping him up at night and he isnt able to eat due to the pain. patient also states the left side of his face and neck is swollen. History of Present Illness HPI narrative: patient is a 50-year-old male who presents to the ED for left lower molar dental pain x 4 days. Patient states he has a history of dental pain in the same area, has broken a tooth in the past. He has been on antibiotics several months ago for dental pain, none recently. Patient states he feels like his left jaw is starting to swell. Related Data Home Medications ?Medication ?Instructions ?Recorded ?Confirmed gabapentin 300 mg capsule 300 mg PO DAILY Pain 0 07/06/20 Previous Rx's ?Medication ?Instructions ?Recorded albuterol sulfate 90 mcg/actuation 2 puffs IH Q6HP PRN Shortness Of 11/08/21 aerosol inhaler Breath 30 days #1 ea ibuprofen 600 mg tablet 600 mg PO Q6HP PRN Mild Pain #30 11/08/21 tabs promethazine-DM 6.25 mg-15 mg/5 mL 5 ml PO Q6HP PRN Co ugh #240 mL 11/08/21 oral syrup methocarbamol 750 mg tablet 1,500 mg (2 x 750 mg) PO T ID 5 11/29/23 days #30 tabs aspirin 81 mg tablet,delayed 81 mg PO DAILY #30 tabs 0 11/03/24 release amoxicillin 875 mg-potassium 1 tab PO BID #20 tabs 09/14 clavulanate 125 mg tablet ibuprofen 600 mg tablet 600 mg PO TID PRN pain 7 day s #21 07/31/25 tabs Allergies Allergy/AdvReac Type Severity Reaction Status Date / Time No Known Allergies Allergy Verified 06/30/20 08:50 [facility] Disclaimer: The information contained in this section may have been updated after the patient was seen, as this information can be updated by other users. Social History Smoking Status: Current every day smoker tobacco type: cigarettes packs per day: 1 alcohol intake: current alcohol intake frequency: a few times a month substance use type: marijuana current occupational status: employed Travel in the last 8 weeks?: None household members: spouse housing: house current occupation: [employer] current occupational exposures/hazards: No caffeine: Yes Have you lived/traveled outside [place] in past 30 days?: No Contact w/someone who lives/traveled outside [place] past 30 days?: No Exposure to someone with infectious disease in past 14 days?: No Do you have a fever (greater than 100.4 F or 38 C)?: No Have you tested positive for COVID-19?: No Exposed to someone with COVID-19 in past 14 days?: No Do you have a sore throat?: No Do you have a cough?: No Do you have any weakness?: No Do you have any diarrhea?: No Are you experiencing any unusual bleeding?: No Do you have any muscle aches/pain?: No Do you have any abdominal pain?: No Are you experiencing loss of taste or smell?: No Other Medical History Have you received the Flu Vaccine for this season: Yes (2019) Have you received the Pneumonia Vaccine: No ROS Obtained: Yes Systems reviewed as appropriate & no additional complaints except as documented Physical Exam General General appearance: alert Head Head exam: atraumatic Eye Eye exam: Present PERRL ENT ENT exam: Present other (poor dental hygiene, decay, tenderness around the left lower molar, mild lower left jaw edema. grape sized abscess to the lateral aspect of the left lower molar) Respiratory Respiratory exam: Present normal lung sounds bilaterally Cardiovascular Cardiovascular exam: Present regular rate Abdominal Exam Abdominal exam: Present soft Extremities Exam Extremities exam: Present full ROM Neurological Exam Neurological exam: Present alert Psychiatric Psychiatric exam: Present normal affect Skin Skin exam: Present dry Medical Decision Making Medical Records Screening: Per USPSTF and CDC recommendations, given the prevalence of disease in our region, it is our hospital?s policy to screen for HIV and viral Hepatitis for all patients aged 18 and over and those with ongoing risk factors. Angelito Inquiry Pt receiving controlled substance: No Vital Signs: 07/31/25 14:09 07/31/25 15:32 07/31/25 15:37 Temperature 97.7 F 98.0 F Temperature Source Temporal Artery Scan Pulse Rate 64 64 Pulse Rate [Left Radial] 79 Respiratory Rate 20 15 16 Blood Pressure 133/88 133/88 Blood Pressure [Left Arm] 137/77 Blood Pressure Mean [Left Arm] 97 Blood Pressure Source [Left Arm] Automatic Cuff Blood Pressure Position [Left Arm] Sitting 02 Sat by Pulse Oximetry 100 99 Oxygen Delivery Method Room Air Orders (Tests/Meds): ED MEDICATIONS Discontinued Medications Generic Name Dose Route Start Last Admin Trade Name Rox PRN Reason Stop Dose Admin Amoxicillin/Clavulanate Potassium 1 each 07/31/25 14:35 07/31/25 15:03 Amoxicillin/Clavulanate Potassium 875/125mg Tablet PO 07/31/25 14:36 1 each ONCE ONE Administration Benzocaine/Butamben/Tetracaine HCl 1 gm 07/31/25 14:21 07/31/25 14:47 Tetracaine/Benzocaine/Butamben 56 Gm [place] TP 08/30/25 14:20 1 gm NEEDED PRN Administration Toothache Bupivacaine HCl 1 mg 07/31/25 14:34 07/31/25 15:00 Bupivacaine 0.5% 30ml Vial IJ 07/31/25 14:35 1 mg ONCE ONE Administration Lidocaine HCl 15 ml 07/31/25 14:21 07/31/25 14:47 Lidocaine 2% Viscous Chtena 15ml Udc PO 07/31/25 14:22 15 ml ONCE ONE Administration Oxycodone HCl 5 mg 07/31/25 15:14 07/31/25 15:28 Oxycodone 5mg Immediate Release Tablet PO 07/31/25 15:15 5 mg ONCE ONE Administration Medical Decision Narrative: In summary, patient is a 50-year-old male who presents to the ED for left lower molar dental pain x 4 days. Patient states he has a history of dental pain in the same area, has broken a tooth in the past. He has been on antibiotics several months ago for dental pain, none recently. Patient states he feels like his left jaw is starting to swell. Denies taking anything for pain prior to arrival. Upon initial evaluation patient is alert, oriented and cooperative. Physical exam remarkable for poor dental hygiene, decay, tenderness around the left lower molar, mild lower left jaw edema, grape sized abscess to the lateral aspect of the left lower molar. Discussed with patient that we can perform a dental block, he is agreeable to this. I pretreated the area with Cetacaine spray, I used 0.5% bupivacaine, administered 3 mL on the left side, achieved pain reduction. Patient was given tooth balls during his ED stay. He was given oxycodone 5 mg for pain, administered 1 dose of Augmentin 875. Upon reassessment, patient's condition has improved. Given this, feel that he is safe to be discharged at this time. I sent a prescription for Augmentin and ibuprofen to the pharmacy. Advised patient not to take additional ibuprofen or NSAIDs with the 600 mg. We discussed taking the antibiotics as directed. He already has an appointment to follow-up with dentistry this coming Saturday. We discussed return precautions to the ED and patient verbalized understanding. Critical Care Critical Care Time Critical Care Time: No
[2025-07-31] MEDS: TETRACAINE/BENZOCAINE/BUTAMBEN 56 GM SPRAY TP (14:47)
[2025-07-31] MEDS: LIDOCAINE 2% VISCOUS SOL 15ML UDC 15 ML PO (14:47)
[2025-07-31] MEDS: BUPIVACAINE 0.5% 30ML VIAL 1 MG IJ (15:00)
[2025-07-31] MEDS: AMOXICILLIN/CLAVULANATE POTASSIUM 875/125MG TABLET 1 EACH PO (15:03)
[2025-07-31] MEDS: OXYCODONE 5MG IMMEDIATE RELEASE TABLET 5 MG PO (15:28)
[2025-07-31 15:32] VITALS: BP 133/88; PULSE 64; RESP 15; O2SAT 99
[2025-07-31 15:37] VITALS: BP 133/88; PULSE 64; RESP 16; TEMP 36.7; O2SAT 99
== END 2025-07-31 15:41 | disposition home or self-care (01) ==
PROVIDERS: Emergency Provider Student in an Organized Health Care Education/Training Program; PCP Family Medicine
DX: R22.0 Localized swelling, mass and lump, head (principal); K04.7 Periapical abscess without sinus; F17.210 Nicotine dependence, cigarettes, uncomplicated
CPT/HCPCS: 99283; J0665